=== PATIENT | female | born 1980 | race Caucasian/White ===

== ENCOUNTER 2016-08-21 01:22 | Outpatient (CLI) | payer BC ==
[~2016-08-21] VITALS: Ht 170.2 cm; Wt 80.0 kg
[~2016-08-21 01:22] MED LIST: HYDR200T PO
[2016-08-21 02:04] LABS: AMNI LOT 554010215
[2016-08-21 02:13] VITALS: BP 123/75
[2016-08-21 02:54] LABS: AMNI OBC PASS; AMNISURE NEGATIVE (NEGATIVE)
== END 2016-08-21 03:05 | disposition home or self-care (01) ==
LOC: LDOP 01:22
PROVIDERS: ATTEND Obstetrics & Gynecology
DX: O09.513 Supervision of elderly primigravida, third trimester (principal); O36.8130 Decreased fetal movements, third trimester, not applicable or unspecified; Z3A.28 28 weeks gestation of pregnancy
CPT/HCPCS: 59025; 81003; 84112; 87086; 99201; G0463

== ENCOUNTER 2016-11-16 05:36 | Inpatient (IN) | payer BC ==
[~2016-11-16] VITALS: Ht 170.2 cm; Wt 102.2 kg
[2016-11-16] MEDS ORDERED: OXYTOCIN 30U/ 0.9% NaCL 500ML 500 ML IV SCH (05:47)
[2016-11-16] MEDS ORDERED: LACTATED RINGERS 1,000 ML IV SCH ×2 (05:47→06:00)
[2016-11-16] MEDS ORDERED: PREN-3 PO (05:58)
[2016-11-16] MEDS ORDERED: SODIUM CITRATE/CITRIC ACID 30 ML UDC PO ONE (06:00)
[2016-11-16] MEDS ORDERED: LACTATED RINGERS 1,000 ML IVBOLUS ONE (06:00)
[2016-11-16] MEDS ORDERED: ONDANSETRON 2MG/ML, 2ML IVPush ONE (06:00)
[2016-11-16 06:06] VITALS: BP 125/85
[2016-11-16] MEDS ORDERED: OXYTOCIN 30U/ 0.9% NaCL 500ML 500 ML ONE (06:43)
[2016-11-16] MEDS ORDERED: NEWBORN KIT ONE (06:43)
[2016-11-16] MEDS ORDERED: METOCLOPRAMIDE 5 MG/ML, 2ML ONE ×2 (06:43→08:11)
[2016-11-16] MEDS ORDERED: SODIUM CITRATE/CITRIC ACID 30 ML UDC ONE ×2 (06:43→08:11)
[2016-11-16] MEDS ORDERED: PROMETHAZINE 25 MG/ML, 1ML IV PRN (07:30)
[2016-11-16] MEDS ORDERED: EPHEDRINE 50 MG/ML, 1ML IVPush PRN (07:30)
[2016-11-16] MEDS ORDERED: hydrALAzine 20 MG/ML, 1ML IV PRN (07:30)
[2016-11-16] MEDS ORDERED: ONDANSETRON 2MG/ML, 2ML IVPush PRN (07:30)
[2016-11-16] MEDS ORDERED: HYDROmorphone 1 MG/ML, 1ML IV PRN (07:30)
[2016-11-16] MEDS ORDERED: LABETALOL 5MG/ML, 20ML IV PRN (07:30)
[2016-11-16] MEDS ORDERED: ALBUTEROL SULFATE 2.5 MG/3 ML NPPB PRN (07:30)
[2016-11-16] MEDS ORDERED: MIDAZOLAM 1 MG/ML, 2ML IV PRN (07:30)
[2016-11-16] MEDS ORDERED: MEPERIDINE/PF 25MG/0.5ML IVPush PRN (07:30)
[2016-11-16] MEDS ORDERED: FENTANYL PF 100 MCG/2ML IV PRN (07:30)
[2016-11-16] MEDS ORDERED: OXYcodone 5 MG/5 ML ORAL.SOL UDC PO PRN (07:30)
[2016-11-16] MEDS ORDERED: HYDROcodone/APAP 7.5-325MG/15ML UDC PO PRN (07:30)
[2016-11-16] MEDS ORDERED: FENTANYL PF 100 MCG/2ML ONE (07:37)
[2016-11-16] MEDS ORDERED: DEXAMETHASONE 4 MG/ML, 1ML ONE (08:11)
[2016-11-16] MEDS ORDERED: KETOROLAC 30 MG/1 ML ONE (08:11)
[2016-11-16] MEDS ORDERED: ONDANSETRON 2MG/ML, 2ML ONE (08:11)
[2016-11-16] MEDS ORDERED: CEFAZOLIN 1,000 MG ONE (08:11)
[2016-11-16] MEDS ORDERED: OXYTOCIN 10 UNITS/ML, 1ML ONE (08:11)
[2016-11-16] MEDS ORDERED: METOCLOPRAMIDE 5 MG/ML, 2ML IVPush ONE (08:30)
[2016-11-16] MEDS: LACTATED RINGERS 1,000 ML IV SCH ×4 (09:19→19:19)
[2016-11-16] MEDS ORDERED: ACETAMINOPHEN 325 MG TABLET PO PRN (09:30)
[2016-11-16] MEDS ORDERED: morphine SULFATE 10 MG/ML, 1ML IVPush PRN ×2 (09:30)
[2016-11-16] MEDS ORDERED: OXYcodone/APAP 5/325MG TABLET PO PRN (09:30)
[2016-11-16] MEDS ORDERED: ONDANSETRON 2MG/ML, 2ML IV PRN (09:30)
[2016-11-16] MEDS ORDERED: METHYLERGONOVINE 0.2 MG/ML IM PRN (09:30)
[2016-11-16] MEDS: KETOROLAC 30 MG/1 ML IV SCH ×3 (09:30→22:02)
[2016-11-16] MEDS ORDERED: MEPERIDINE/PF 100 MG/ML IVPush PRN (09:30)
[2016-11-16] MEDS ORDERED: MISOPROSTOL 200 MCG TABLET PR PRN (09:30)
[2016-11-16] MEDS ORDERED: MEPERIDINE/PF 50 MG/ML IVPush PRN (09:30)
[2016-11-16] MEDS: OXYTOCIN 30U/ 0.9% NaCL 500ML 500 ML IV SCH ×2 (10:02→19:19)
[2016-11-16 12:00] VITALS: BP 121/78
[2016-11-16 16:00] VITALS: BP 129/77
[2016-11-16 19:25] VITALS: BP 114/69
[2016-11-17 00:50] VITALS: BP 115/73
[2016-11-17] MEDS: LACTATED RINGERS 1,000 ML IV SCH ×5 (01:19→17:19)
[2016-11-17 04:15] VITALS: BP 117/75
[2016-11-17] MEDS: KETOROLAC 30 MG/1 ML IV SCH ×4 (04:15→22:42)
[2016-11-17] MEDS: OXYcodone/APAP 5/325MG TABLET PO PRN ×4 (04:15→18:06)
[2016-11-17] MEDS: OXYTOCIN 30U/ 0.9% NaCL 500ML 500 ML IV SCH ×2 (05:19→15:19)
[2016-11-17 08:45] VITALS: BP 117/75
[2016-11-17] MEDS: DOCUSATE 100 MG CAPSULE PO PRN ×2 (09:02→22:42)
[2016-11-17] MEDS: PRENATAL VIT/IRON/FA 1 EACH TABLET PO SCH (09:02)
[2016-11-17 19:25] VITALS: BP 116/74
[2016-11-18] MEDS: OXYTOCIN 30U/ 0.9% NaCL 500ML 500 ML IV SCH ×3 (01:19→21:19)
[2016-11-18] MEDS: LACTATED RINGERS 1,000 ML IV SCH ×6 (01:19→21:19)
[2016-11-18] MEDS: KETOROLAC 30 MG/1 ML IV SCH ×2 (03:30→04:29)
[2016-11-18] MEDS: KETOROLAC 30 MG/1 ML IVPush SCH ×3 (04:30→17:00)
[2016-11-18 08:00] VITALS: BP 115/75
[2016-11-18] MEDS: PRENATAL VIT/IRON/FA 1 EACH TABLET PO SCH (11:06)
[2016-11-18] MEDS: IBUPROFEN 200 MG TABLET PO PRN ×3 (11:06→23:35)
[2016-11-18] MEDS: DOCUSATE 100 MG CAPSULE PO PRN (11:06)
[2016-11-18] MEDS: OXYcodone/APAP 5/325MG TABLET PO PRN ×3 (14:14→23:35)
[2016-11-18 21:00] VITALS: BP 113/76
[2016-11-19 06:50] VITALS: BP 118/80
[2016-11-19] MEDS: PRENATAL VIT/IRON/FA 1 EACH TABLET PO SCH (07:58)
[2016-11-19] MEDS: DOCUSATE 100 MG CAPSULE PO PRN (07:58)
[2016-11-19] MEDS: IBUPROFEN 200 MG TABLET PO PRN ×2 (07:58→14:06)
[2016-11-19] MEDS: OXYcodone/APAP 5/325MG TABLET PO PRN ×2 (07:58→12:47)
[2016-11-19] MEDS ORDERED: OXYC-302 PO (11:28)
[2016-11-19] MEDS ORDERED: IBUP-1222 PO (11:29)
== END 2016-11-19 15:57 | disposition home or self-care (01) | DRG 766 ==
LOC: LDIP 05:36 → 2NW 11:19
PROVIDERS: ADMIT Obstetrics & Gynecology; ATTEND Obstetrics & Gynecology
PROC: 10D00Z1 Extraction of Products of Conception, Low, Open Approach (ICD-10-PCS; principal; 2016-11-16)
DX: O34.211 Maternal care for low transverse scar from previous cesarean delivery (principal); O99.824 Streptococcus B carrier state complicating childbirth; M32.9 Systemic lupus erythematosus, unspecified; O99.89 Other specified diseases and conditions complicating pregnancy, childbirth and the puerperium; O69.81X0 Labor and delivery complicated by cord around neck, without compression, not applicable or unspecified; Z3A.39 39 weeks gestation of pregnancy; Z37.0 Single live birth
CPT/HCPCS: 36415; 85025; 86850; 86900; J0690; J1100; J1885; J2405; J3010; J2590; J2765; J7120

== ENCOUNTER 2016-12-02 18:44 | Emergency (ER) | payer BC ==
[~2016-12-02] VITALS: Ht 170.2 cm; Wt 92.9 kg
[~2016-12-02 18:44] MED LIST changes: +IBUP-1222 PO; +OXYC-302 PO; +PREN-3 PO
[2016-12-02] MEDS ORDERED: ACETAMINOPHEN 500 MG TABLET ONE (19:23)
[2016-12-02] MEDS ORDERED: SODIUM CHLORIDE 0.9% 1,000ML IVBOLUS ONE (19:30)
[2016-12-02] MEDS ORDERED: SODIUM CHLORIDE FLUSH 10ML SYR IVF ONE (19:30)
[2016-12-02] MEDS ORDERED: ACETAMINOPHEN 500 MG TABLET PO ONE (19:30)
[2016-12-02 19:43] LABS: BLOOD UREA NITROGEN 10 mg/dL (7-18)
[2016-12-02] MEDS ORDERED: FAMOTIDINE 20 MG/2 ML IVP ONE (20:00)
[2016-12-02] MEDS ORDERED: MAALOX/HYOSCYAMINE/LIDOCAINE 45 ML BOTTLE PO ONE (20:00)
[2016-12-02] MEDS ORDERED: MAALOX/HYOSCYAMINE/LIDOCAINE 45 ML BOTTLE ONE (22:12)
[2016-12-02] MEDS ORDERED: FAMOTIDINE 20 MG/2 ML ONE (22:12)
[2016-12-02] MEDS ORDERED: MORPHINE SULFATE 4 MG/ML, 1ML ONE (22:14)
[2016-12-02] MEDS ORDERED: MORPHINE SULFATE 4 MG/ML, 1ML IVPush PRN (22:30)
[2016-12-02 23:31] VITALS: BP 117/72
== END 2016-12-02 23:33 | disposition home or self-care (01) ==
LOC: ED 21:48
DX: R10.33 Periumbilical pain (principal); R10.31 Right lower quadrant pain; Z87.891 Personal history of nicotine dependence
CPT/HCPCS: 36415; 71010; 72132; 74177; 80048; 81003; 82040; 83605; 84145; 85025; 85651; 87040; 96361; 96374; 96375; J7030; S0028

== ENCOUNTER 2016-12-07 15:42 | Inpatient (IN) | payer BC ==
[~2016-12-07] VITALS: Ht 170.2 cm; Wt 92.7 kg
[2016-12-07] MEDS ORDERED: SODIUM CHLORIDE 0.9% 1,000ML IVBOLUS ONE (16:30)
[2016-12-07] MEDS ORDERED: SODIUM CHLORIDE FLUSH 10ML SYR IVF ONE (16:30)
[2016-12-07 16:40] LABS: BLOOD UREA NITROGEN 6 mg/dL (7-18)
[2016-12-07 16:55] LABS: PATH.CAST-FLAG NOT PRESENT; SPERM-FLAG NOT PRESENT; SRC-FLAG NOT PRESENT; XTAL-FLAG NOT PRESENT; YLC-FLAG NOT PRESENT
[2016-12-07] MEDS ORDERED: ACETAMINOPHEN 500 MG TABLET PO ONE (17:00)
[2016-12-07] MEDS ORDERED: ACETAMINOPHEN 500 MG TABLET ONE (17:19)
[2016-12-07] MEDS ORDERED: CEFTRIAXONE PMX 1GM/50ML 50 ML IV ONE (17:30)
[2016-12-07] MEDS ORDERED: CEFTRIAXONE PMX 1GM/50ML 50 ML ONE (17:57)
[2016-12-07] MEDS ORDERED: CLINDAMYCIN PMX 900MG/50ML 50 ML ONE (19:22)
[2016-12-07] MEDS: CEFOTETAN PMX 2GM/50ML 50 ML IV ONE ×2 (19:30→21:19)
[2016-12-07] MEDS ORDERED: CLINDAMYCIN PMX 900MG/50ML 50 ML IV ONE (19:30)
[2016-12-07] MEDS ORDERED: DOCUSATE 100 MG CAPSULE PO PRN (20:00)
[2016-12-07] MEDS ORDERED: ONDANSETRON 2MG/ML, 2ML IV PRN (20:00)
[2016-12-07] MEDS ORDERED: CALCIUM CARBONATE 500 MG TAB.CHEW PO PRN (20:00)
[2016-12-07] MEDS ORDERED: OXYcodone/APAP 5/325MG TABLET PO PRN ×2 (20:00)
[2016-12-07] MEDS ORDERED: GLYCERIN ADULT SUPP PR PRN (20:00)
[2016-12-07] MEDS ORDERED: CEFOTETAN PMX 2GM/50ML 50 ML IV SCH (20:00)
[2016-12-07] MEDS ORDERED: BISACODYL 10 MG SUPP PR PRN (20:00)
[2016-12-07] MEDS ORDERED: METOCLOPRAMIDE 5 MG/ML, 2ML IV PRN (20:00)
[2016-12-07] MEDS: IBUPROFEN 600 MG TABLET PO PRN (21:19)
[2016-12-07] MEDS: LACTATED RINGERS 1,000 ML IV SCH (21:53)
[2016-12-07 22:00] VITALS: BP 112/75
[2016-12-07] MEDS: CEFOTETAN PMX 2GM/50ML 50 ML IV SCH (22:00)
[2016-12-07 22:15] VITALS: BP 112/75
[2016-12-07] MEDS: ACETAMINOPHEN 325 MG TABLET PO PRN (23:26)
[2016-12-08 02:00] VITALS: BP 115/74
[2016-12-08] MEDS: CLINDAMYCIN PMX 900MG/50ML 50 ML IV SCH ×3 (04:12→20:50)
[2016-12-08 05:28] LABS: ASPARTATE AMINO TRANSFERASE 12 U/L (15-37); BLOOD UREA NITROGEN 8 mg/dL (7-18)
[2016-12-08] MEDS: ACETAMINOPHEN 325 MG TABLET PO PRN ×2 (05:51→13:25)
[2016-12-08] MEDS: LACTATED RINGERS 1,000 ML IV SCH ×2 (06:32→14:25)
[2016-12-08 07:51] VITALS: BP 114/71
[2016-12-08] MEDS: PRENATAL VIT/IRON/FA 1 EACH TABLET PO SCH (08:31)
[2016-12-08] MEDS: IBUPROFEN 600 MG TABLET PO PRN ×3 (08:31→20:50)
[2016-12-08] MEDS: HYDROXYCHLOROQUINE 200 MG TABLET PO SCH (08:31)
[2016-12-08] MEDS: CEFOTETAN PMX 2GM/50ML 50 ML IV SCH ×2 (10:00→22:22)
[2016-12-08 14:42] VITALS: BP 123/78
[2016-12-08 19:01] VITALS: BP 120/81
[2016-12-09] MEDS: LACTATED RINGERS 1,000 ML IV SCH ×3 (00:54→20:02)
[2016-12-09 01:24] VITALS: BP 124/75
[2016-12-09] MEDS: IBUPROFEN 600 MG TABLET PO PRN ×2 (04:15→10:24)
[2016-12-09] MEDS: CLINDAMYCIN PMX 900MG/50ML 50 ML IV SCH ×3 (04:15→20:02)
[2016-12-09 04:50] VITALS: BP 101/66
[2016-12-09 08:05] VITALS: BP 108/72
[2016-12-09] MEDS: PRENATAL VIT/IRON/FA 1 EACH TABLET PO SCH (09:06)
[2016-12-09] MEDS: CEFOTETAN PMX 2GM/50ML 50 ML IV SCH ×2 (10:20→22:09)
[2016-12-09] MEDS: ACETAMINOPHEN 325 MG TABLET PO PRN ×2 (12:57→22:15)
[2016-12-09 14:30] VITALS: BP 103/66
[2016-12-09 20:46] VITALS: BP 119/79
[2016-12-10 02:05] VITALS: BP 106/71
[2016-12-10] MEDS: CLINDAMYCIN PMX 900MG/50ML 50 ML IV SCH (04:02)
[2016-12-10] MEDS: LACTATED RINGERS 1,000 ML IV SCH (06:09)
[2016-12-10 08:08] VITALS: BP 112/73
[2016-12-10] MEDS: PRENATAL VIT/IRON/FA 1 EACH TABLET PO SCH (09:05)
[2016-12-10] MEDS: HYDROXYCHLOROQUINE 200 MG TABLET PO SCH (09:05)
[2016-12-10] MEDS: CEFOTETAN PMX 2GM/50ML 50 ML IV SCH (09:08)
[2016-12-10] MEDS ORDERED: CLIN300C93 PO (10:47)
[2016-12-10] MEDS ORDERED: CEFD300C37 PO (10:48)
[2016-12-10] MEDS: IBUPROFEN 600 MG TABLET PO PRN (11:43)
== END 2016-12-10 12:10 | disposition home or self-care (01) | DRG 776 ==
LOC: ED 16:34 → EDIP 19:17 → 3NE 21:00
PROVIDERS: ADMIT Obstetrics & Gynecology; ATTEND Obstetrics & Gynecology
PROC: 0T9B70Z Drainage of Bladder with Drainage Device, Via Natural or Artificial Opening (ICD-10-PCS; principal; 2016-12-07)
DX: O86.12 Endometritis following delivery (principal); O99.89 Other specified diseases and conditions complicating pregnancy, childbirth and the puerperium; M54.32 Sciatica, left side; Z88.0 Allergy status to penicillin; Z88.2 Allergy status to sulfonamides; Z91.018 Allergy to other foods; Z87.891 Personal history of nicotine dependence
CPT/HCPCS: 36415; 80048; 80053; 81001; 82040; 83605; 85025; 87040; 87086; 87210; 87491; 87591; 87808; 96361; 96365; 96375; J0696; J7030; J7120; S0074

== ENCOUNTER 2016-12-13 21:41 | Inpatient (IN) | payer BC ==
[~2016-12-13] VITALS: Ht 172.7 cm; Wt 97.5 kg
[~2016-12-13 21:41] MED LIST changes: +CEFD300C37 PO; +CLIN300C93 PO
[2016-12-13 22:35] LABS: HEMATOCRIT 30.4 % (34.6-47.8); HEMOGLOBIN 10.1 g/dL (11.7-16.4)
[2016-12-13 22:46] LABS: ASPARTATE AMINO TRANSFERASE 20 U/L (15-37); BLOOD UREA NITROGEN 11 mg/dL (7-18)
[2016-12-13] MEDS: OXYcodone/APAP 10/325MG TABLET PO PRN (23:25)
[2016-12-13] MEDS ORDERED: OXYcodone/APAP 10/325MG TABLET ONE (23:38)
[2016-12-14] MEDS ORDERED: ENOXAPARIN 100 MG/ML SQ ONE
[2016-12-14] MEDS ORDERED: OXYC1TAB6 PO (00:13)
[2016-12-14] MEDS ORDERED: OXYC1TAB7 PO (00:15)
[2016-12-14 01:25] VITALS: BP 122/83
[2016-12-14] MEDS ORDERED: OXYcodone/APAP 5/325MG TABLET PO PRN (01:30)
[2016-12-14] MEDS ORDERED: BISACODYL 10 MG SUPP PR PRN (01:30)
[2016-12-14] MEDS ORDERED: POLYETHYLENE GLYCOL 17 GM PACKET PO PRN (01:30)
[2016-12-14] MEDS ORDERED: DOCUSATE 100 MG CAPSULE PO PRN (01:30)
[2016-12-14] MEDS: CLINDAMYCIN 300 MG CAPSULE PO SCH ×4 (01:30→18:12)
[2016-12-14] MEDS: OXYcodone/APAP 10/325MG TABLET PO PRN ×2 (01:37→01:39)
[2016-12-14] MEDS: IBUPROFEN 600 MG TABLET PO PRN ×3 (05:50→18:12)
[2016-12-14 07:11] VITALS: BP 111/69
[2016-12-14] MEDS: CEFDINIR 300 MG CAPSULE PO SCH ×2 (09:27→20:47)
[2016-12-14] MEDS: SODIUM CHLORIDE FLUSH 10ML SYR IVF SCH ×2 (09:27→20:47)
[2016-12-14] MEDS: PRENATAL VIT/IRON/FA 1 EACH TABLET PO SCH (09:27)
[2016-12-14] MEDS: WARFARIN HIGH DOSE PROTOCOL XX SCH (12:06)
[2016-12-14] MEDS: ENOXAPARIN 100 MG/ML SQ SCH (12:08)
[2016-12-14 13:37] LABS: TOTAL IRON BINDING CAPACITY 172 mcg/dL (250-450)
[2016-12-14 14:20] VITALS: BP 124/79
[2016-12-14] MEDS ORDERED: IRON DEXTRAN IV PER PHARMACY IV PRN (14:30)
[2016-12-14] MEDS: ACETAMINOPHEN 325 MG TABLET PO PRN (14:40)
[2016-12-14] MEDS ORDERED: OXYcodone/APAP 5/325MG TABLET ONE (14:57)
[2016-12-14] MEDS ORDERED: EPINEPHRINE 1 MG/ML, 1ML IM PRN (15:00)
[2016-12-14] MEDS: ONDANSETRON 2MG/ML, 2ML IVPush PRN (15:00)
[2016-12-14] MEDS ORDERED: IRON DEXTRAN COMPLEX 25 MG in SODIUM CHLORIDE 0.9% 50 ML IV ONE (15:00)
[2016-12-14] MEDS: OXYcodone/APAP 5/325MG TABLET PO PRN ×2 (15:07→21:31)
[2016-12-14] MEDS ORDERED: IRON DEXTRAN COMPLEX 1,250 MG in SODIUM CHLORIDE 0.9% 250 ML IV ONE (16:30)
[2016-12-14] MEDS ORDERED: DIPHENHYDRAMINE 50 MG/ML, 1ML IVPush ONE (17:00)
[2016-12-14] MEDS ORDERED: WARFARIN 10 MG TABLET PO-COUM ONE (18:00)
[2016-12-14 19:35] VITALS: BP 106/69
[2016-12-15] MEDS: CLINDAMYCIN 300 MG CAPSULE PO SCH ×4 (00:23→18:24)
[2016-12-15] MEDS: IBUPROFEN 600 MG TABLET PO PRN ×3 (00:23→15:35)
[2016-12-15] MEDS: ENOXAPARIN 100 MG/ML SQ SCH ×2 (00:24→12:29)
[2016-12-15 01:34] VITALS: BP 115/76
[2016-12-15] MEDS: OXYcodone/APAP 5/325MG TABLET PO PRN ×3 (03:43→22:35)
[2016-12-15 05:55] LABS: HEMATOCRIT 28.5 % (34.6-47.8); HEMOGLOBIN 9.5 g/dL (11.7-16.4); WHITE BLOOD COUNT 6.7 x10^3/uL (3.4-10)
[2016-12-15 06:11] LABS: BLOOD UREA NITROGEN 10 mg/dL (7-18)
[2016-12-15 07:46] VITALS: BP 100/64
[2016-12-15] MEDS: SODIUM CHLORIDE FLUSH 10ML SYR IVF SCH ×2 (09:00→21:28)
[2016-12-15] MEDS: HYDROXYCHLOROQUINE 200 MG TABLET PO SCH (09:38)
[2016-12-15] MEDS: PRENATAL VIT/IRON/FA 1 EACH TABLET PO SCH (09:38)
[2016-12-15] MEDS: CEFDINIR 300 MG CAPSULE PO SCH ×2 (09:38→21:28)
[2016-12-15] MEDS: WARFARIN HIGH DOSE PROTOCOL XX SCH (12:00)
[2016-12-15 13:00] VITALS: BP 114/72
[2016-12-15] MEDS: ONDANSETRON 2MG/ML, 2ML IVPush PRN (17:25)
[2016-12-15] MEDS: ACETAMINOPHEN 325 MG TABLET PO PRN (17:35)
[2016-12-15] MEDS ORDERED: WARFARIN 7.5 MG TABLET PO-COUM SCH (18:00)
[2016-12-15] MEDS ORDERED: OMNIPAQUE 350 MG/ML, 100ML BOTTLE ONE (18:06)
[2016-12-15 21:09] LABS: IS PT STATUS REG ER OR PRE ER? NO
[2016-12-16] MEDS: ENOXAPARIN 100 MG/ML SQ SCH ×3 (00:01→23:41)
[2016-12-16] MEDS: CLINDAMYCIN 300 MG CAPSULE PO SCH ×5 (00:01→23:40)
[2016-12-16 01:29] VITALS: BP 112/76
[2016-12-16] MEDS: IBUPROFEN 600 MG TABLET PO PRN ×3 (03:00→15:23)
[2016-12-16 05:11] LABS: HEMATOCRIT 28.1 % (34.6-47.8); HEMOGLOBIN 9.3 g/dL (11.7-16.4)
[2016-12-16 07:19] VITALS: BP 105/70
[2016-12-16] MEDS: PRENATAL VIT/IRON/FA 1 EACH TABLET PO SCH (09:00)
[2016-12-16] MEDS: CEFDINIR 300 MG CAPSULE PO SCH ×2 (09:11→20:09)
[2016-12-16] MEDS: SODIUM CHLORIDE FLUSH 10ML SYR IVF SCH ×2 (09:11→20:10)
[2016-12-16] MEDS: WARFARIN HIGH DOSE PROTOCOL XX SCH (12:00)
[2016-12-16 12:51] VITALS: BP 104/67
[2016-12-16 19:16] VITALS: BP 119/76
[2016-12-16] MEDS: OXYcodone/APAP 5/325MG TABLET PO PRN (23:40)
[2016-12-17 01:06] VITALS: BP 116/75
[2016-12-17] MEDS: CLINDAMYCIN 300 MG CAPSULE PO SCH ×2 (06:04→12:20)
[2016-12-17 06:55] VITALS: BP 147/90
[2016-12-17] MEDS: ONDANSETRON 2MG/ML, 2ML IVPush PRN (07:13)
[2016-12-17] MEDS: CEFDINIR 300 MG CAPSULE PO SCH (07:48)
[2016-12-17] MEDS: OXYcodone/APAP 5/325MG TABLET PO PRN ×2 (07:49→15:40)
[2016-12-17] MEDS: PRENATAL VIT/IRON/FA 1 EACH TABLET PO SCH (08:50)
[2016-12-17] MEDS: SODIUM CHLORIDE FLUSH 10ML SYR IVF SCH (10:09)
[2016-12-17] MEDS: HYDROXYCHLOROQUINE 200 MG TABLET PO SCH (10:09)
[2016-12-17] MEDS: WARFARIN HIGH DOSE PROTOCOL XX SCH (12:00)
[2016-12-17] MEDS: ENOXAPARIN 100 MG/ML SQ SCH (12:22)
[2016-12-17 12:30] VITALS: BP 107/68
[2016-12-17] MEDS ORDERED: WARF5TAB PO-COUM (14:04)
[2016-12-17 16:30] VITALS: BP 108/71
[2016-12-17] MEDS ORDERED: WARFARIN 5 MG TABLET PO-COUM SCH (18:00)
== END 2016-12-17 17:55 | disposition home health service (06) | DRG 299 ==
LOC: ED 22:05 → EDIP 12-14 00:14 → 4NOR 12-14 01:42 → DCLOUNGE 12-17 16:55
DX: I82.412 Acute embolism and thrombosis of left femoral vein (principal); E43 Unspecified severe protein-calorie malnutrition; D68.59 Other primary thrombophilia; E87.1 Hypo-osmolality and hyponatremia; D50.9 Iron deficiency anemia, unspecified; D47.3 Essential (hemorrhagic) thrombocythemia; I82.812 Embolism and thrombosis of superficial veins of left lower extremity; M32.9 Systemic lupus erythematosus, unspecified; M54.6 Pain in thoracic spine; M54.30 Sciatica, unspecified side; Z82.49 Family history of ischemic heart disease and other diseases of the circulatory system; Z83.3 Family history of diabetes mellitus; Z86.718 Personal history of other venous thrombosis and embolism; Z87.891 Personal history of nicotine dependence; Z68.32 Body mass index [BMI] 32.0-32.9, adult; Z88.0 Allergy status to penicillin; Z88.2 Allergy status to sulfonamides; Z88.8 Allergy status to other drugs, medicaments and biological substances; Z87.440 Personal history of urinary (tract) infections
CPT/HCPCS: 36415; 71275; 80048; 80053; 81003; 82607; 83540; 83550; 84484; 85025; 85610; 85730; 93970; 96372; J1650; J1750; J2405; Q9967; J1200; J7050

== ENCOUNTER 2016-12-19 19:24 | Inpatient (IN) | payer BC ==
[~2016-12-19] VITALS: Ht 170.2 cm; Wt 94.0 kg
[~2016-12-19 19:24] MED LIST changes: +CLIN300C8 PO; -CLIN300C93 PO; +OXYC1TAB6 PO; +OXYC1TAB7 PO; +WARF5TAB PO-COUM
[2016-12-19] MEDS ORDERED: ONDANSETRON 2MG/ML, 2ML ONE (20:18)
[2016-12-19] MEDS ORDERED: HYDROmorphone 1 MG/ML, 1ML ONE (20:18)
[2016-12-19] MEDS ORDERED: ACETAMINOPHEN 500 MG TABLET PO ONE (20:30)
[2016-12-19] MEDS ORDERED: ONDANSETRON 2MG/ML, 2ML IVPush ONE (20:30)
[2016-12-19] MEDS ORDERED: SODIUM CHLORIDE 0.9% 1,000ML IVBOLUS ONE (20:30)
[2016-12-19] MEDS ORDERED: HYDROmorphone 1 MG/ML, 1ML IVPush PRN (20:30)
[2016-12-19] MEDS ORDERED: SODIUM CHLORIDE FLUSH 10ML SYR IVF ONE (20:30)
[2016-12-19 20:32] LABS: HEMATOCRIT 30.4 % (34.6-47.8); HEMOGLOBIN 9.9 g/dL (11.7-16.4); WHITE BLOOD COUNT 7.8 x10^3/uL (3.4-10)
[2016-12-19] MEDS ORDERED: ACETAMINOPHEN 500 MG TABLET ONE (20:41)
[2016-12-19 20:43] LABS: ASPARTATE AMINO TRANSFERASE 49 U/L (15-37); BLOOD UREA NITROGEN 6 mg/dL (7-18)
[2016-12-19] MEDS ORDERED: OMNIPAQUE 350 MG/ML, 100ML BOTTLE ONE (21:01)
[2016-12-19] MEDS ORDERED: CEFTRIAXONE PMX 1GM/50ML 50 ML IV ONE (21:30)
[2016-12-19] MEDS ORDERED: CEFTRIAXONE PMX 1GM/50ML 50 ML ONE (21:45)
[2016-12-19 22:37] VITALS: BP 113/72
[2016-12-19] MEDS ORDERED: HEPARIN 25,000 UNITS/500ML PMX 500 ML IV PRN (23:00)
[2016-12-19] MEDS ORDERED: HEPARIN 5,000 UNITS/ML, 1ML IV PRN (23:00)
[2016-12-19] MEDS ORDERED: BISACODYL 10 MG SUPP PR PRN (23:00)
[2016-12-19] MEDS ORDERED: HEPARIN 5,000 UNITS/ML, 1ML IV ONE (23:00)
[2016-12-19] MEDS ORDERED: POLYETHYLENE GLYCOL 17 GM PACKET PO PRN (23:00)
[2016-12-19] MEDS: VANCOMYCIN 50 MG/ML ORAL SUSP PO SCH (23:43)
[2016-12-19] MEDS: SODIUM CHLORIDE 0.9% 1,000 ML IV SCH (23:44)
[2016-12-19] MEDS: CEFTAROLINE 600 MG in SODIUM CHLORIDE 0.9% 100 ML IV SCH (23:46)
[2016-12-20] MEDS: HYDROmorphone 2 MG/ML, 1ML IVPush PRN ×4 (02:42→13:30)
[2016-12-20 03:53] VITALS: BP 122/79
[2016-12-20] MEDS: VANCOMYCIN 50 MG/ML ORAL SUSP PO SCH ×3 (05:11→18:07)
[2016-12-20 05:36] LABS: HEMATOCRIT 28.3 % (34.6-47.8); HEMOGLOBIN 9.2 g/dL (11.7-16.4); WHITE BLOOD COUNT 6.6 x10^3/uL (3.4-10)
[2016-12-20 05:47] LABS: BLOOD UREA NITROGEN 5 mg/dL (7-18)
[2016-12-20 05:58] LABS: ASPARTATE AMINO TRANSFERASE 36 U/L (15-37)
[2016-12-20 07:25] VITALS: BP 136/83
[2016-12-20] MEDS: SENNA/DOCUSATE TABLET PO SCH (08:04)
[2016-12-20] MEDS: HYDROXYCHLOROQUINE 200 MG TABLET PO SCH (08:04)
[2016-12-20] MEDS: PRENATAL VIT/IRON/FA 1 EACH TABLET PO SCH (08:04)
[2016-12-20] MEDS: CEFTAROLINE 600 MG in SODIUM CHLORIDE 0.9% 100 ML IV SCH ×2 (10:47→22:17)
[2016-12-20] MEDS: SODIUM CHLORIDE 0.9% 1,000 ML IV SCH (10:48)
[2016-12-20 13:59] VITALS: BP 143/95
[2016-12-20] MEDS ORDERED: METRONIDAZOLE PMX 500MG/100ML 100 ML IV SCH (16:30)
[2016-12-20] MEDS: ACETAMINOPHEN 325 MG TABLET PO PRN (18:15)
[2016-12-20 19:35] VITALS: BP 125/80
[2016-12-20] MEDS: ONDANSETRON 2MG/ML, 2ML IVPush PRN (22:18)
[2016-12-21] MEDS: HYDROmorphone 2 MG/ML, 1ML IVPush PRN ×8 (00:36→22:37)
[2016-12-21] MEDS: ACETAMINOPHEN 325 MG TABLET PO PRN ×3 (00:37→22:28)
[2016-12-21] MEDS: SODIUM CHLORIDE 0.9% 1,000 ML IV SCH (00:38)
[2016-12-21 01:23] VITALS: BP 118/78
[2016-12-21 05:34] LABS: HEMATOCRIT 27.6 % (34.6-47.8); WHITE BLOOD COUNT 5.5 x10^3/uL (3.4-10)
[2016-12-21 05:48] LABS: BLOOD UREA NITROGEN 5 mg/dL (7-18)
[2016-12-21 05:53] LABS: ASPARTATE AMINO TRANSFERASE 20 U/L (15-37)
[2016-12-21 07:47] VITALS: BP 114/76
[2016-12-21] MEDS: PRENATAL VIT/IRON/FA 1 EACH TABLET PO SCH (07:50)
[2016-12-21] MEDS: SENNA/DOCUSATE TABLET PO SCH (07:51)
[2016-12-21] MEDS ORDERED: FENTANYL PF 100 MCG/2ML ONE ×2 (09:09→10:36)
[2016-12-21] MEDS ORDERED: FLUMAZENIL 0.1 MG/1 ML, 5ML ONE (09:09)
[2016-12-21] MEDS ORDERED: MIDAZOLAM 1 MG/ML, 5ML ONE ×2 (09:09→10:36)
[2016-12-21] MEDS ORDERED: NALOXONE 1 MG/ML, 2ML ONE (09:09)
[2016-12-21] MEDS ORDERED: PROTAMINE SULFATE 10 MG/ML, 5ML ONE (09:10)
[2016-12-21] MEDS ORDERED: HEPARIN 1,000 UNITS/ML, 10ML ONE (09:10)
[2016-12-21] MEDS ORDERED: HEPARIN 25,000 UNITS/500ML PMX 500 ML ONE (09:38)
[2016-12-21] MEDS ORDERED: ALTEPLASE 10 MG in SODIUM CHLORIDE 0.9% 90 ML IV SCH (10:00)
[2016-12-21] MEDS: CEFTAROLINE 600 MG in SODIUM CHLORIDE 0.9% 100 ML IV SCH ×2 (10:30→22:31)
[2016-12-21] MEDS ORDERED: MEPERIDINE/PF 50 MG/ML ONE (11:04)
[2016-12-21] MEDS ORDERED: VISIPAQUE 320MG/ML, 50ML BOTTLE ONE (11:29)
[2016-12-21] MEDS ORDERED: LABETALOL 5MG/ML, 20ML ONE (12:13)
[2016-12-21] MEDS ORDERED: ACETAMINOPHEN 325 MG TABLET PO PRN (12:30)
[2016-12-21] MEDS ORDERED: LABETALOL 5MG/ML, 20ML IVPush PRN (12:30)
[2016-12-21] MEDS ORDERED: MORPHINE SULFATE 4 MG/ML, 1ML IV PRN (13:00)
[2016-12-21] MEDS ORDERED: DIAZEPAM 5 MG/ML, 2ML IVPush PRN (13:00)
[2016-12-21] MEDS ORDERED: HEPARIN 25,000 UNITS/500ML PMX 500 ML IV PRN ×2 (13:00)
[2016-12-21] MEDS: SODIUM CHLORIDE 0.45% 1,000 ML IV SCH (15:30)
[2016-12-21] MEDS: OXYcodone IR 5MG TABLET PO PRN (17:22)
[2016-12-21] MEDS: ONDANSETRON 2MG/ML, 2ML IVPush PRN (19:39)
[2016-12-22] MEDS: SODIUM CHLORIDE 0.45% 1,000 ML IV SCH ×3 (01:15→19:00)
[2016-12-22] MEDS: ALTEPLASE 10 MG in SODIUM CHLORIDE 0.9% 90 ML IV SCH ×3 (01:38→21:33)
[2016-12-22] MEDS: HYDROmorphone 2 MG/ML, 1ML IVPush PRN ×7 (01:40→23:47)
[2016-12-22] MEDS: CEFTAROLINE 600 MG in SODIUM CHLORIDE 0.9% 100 ML IV SCH (09:57)
[2016-12-22] MEDS: PRENATAL VIT/IRON/FA 1 EACH TABLET PO SCH (10:50)
[2016-12-22] MEDS: SENNA/DOCUSATE TABLET PO SCH (10:50)
[2016-12-22] MEDS: KETOROLAC 30 MG/1 ML IVPush PRN ×3 (11:17→23:28)
[2016-12-22] MEDS ORDERED: FENTANYL PF 100 MCG/2ML ONE (15:12)
[2016-12-22] MEDS ORDERED: NALOXONE 1 MG/ML, 2ML ONE (15:12)
[2016-12-22] MEDS ORDERED: FLUMAZENIL 0.1 MG/1 ML, 5ML ONE (15:12)
[2016-12-22] MEDS ORDERED: MIDAZOLAM 1 MG/ML, 5ML ONE (15:12)
[2016-12-22] MEDS ORDERED: ONDANSETRON 2MG/ML, 2ML ONE (15:23)
[2016-12-22] MEDS ORDERED: VISIPAQUE 270 MG/ML, 50ML BOTTLE ONE (16:49)
[2016-12-22] MEDS: HYDROXYCHLOROQUINE 200 MG TABLET PO SCH (18:22)
[2016-12-22] MEDS ORDERED: CALCIUM CARBONATE 500 MG TAB.CHEW PO PRN (23:30)
[2016-12-23] MEDS: HYDROmorphone 2 MG/ML, 1ML IVPush PRN ×5 (04:31→23:06)
[2016-12-23 04:34] LABS: HEMATOCRIT 25.1 % (34.6-47.8); HEMOGLOBIN 8.2 g/dL (11.7-16.4); WHITE BLOOD COUNT 4.3 x10^3/uL (3.4-10)
[2016-12-23 04:36] LABS: ASPARTATE AMINO TRANSFERASE 13 U/L (15-37); BLOOD UREA NITROGEN 4 mg/dL (7-18)
[2016-12-23] MEDS: KETOROLAC 30 MG/1 ML IVPush PRN ×3 (05:18→20:04)
[2016-12-23] MEDS: SODIUM CHLORIDE 0.45% 1,000 ML IV SCH (05:52)
[2016-12-23] MEDS: PRENATAL VIT/IRON/FA 1 EACH TABLET PO SCH (08:29)
[2016-12-23] MEDS: SENNA/DOCUSATE TABLET PO SCH (08:29)
[2016-12-23] MEDS: ALTEPLASE 10 MG in SODIUM CHLORIDE 0.9% 90 ML IV SCH (08:30)
[2016-12-23] MEDS: ONDANSETRON 2MG/ML, 2ML IVPush PRN (13:54)
[2016-12-23] MEDS ORDERED: MIDAZOLAM 1 MG/ML, 5ML ONE (14:10)
[2016-12-23] MEDS ORDERED: NALOXONE 1 MG/ML, 2ML ONE (14:10)
[2016-12-23] MEDS ORDERED: FENTANYL PF 100 MCG/2ML ONE (14:10)
[2016-12-23] MEDS ORDERED: FLUMAZENIL 0.1 MG/1 ML, 5ML ONE (14:10)
[2016-12-23] MEDS ORDERED: VISIPAQUE 270 MG/ML, 50ML BOTTLE ONE (14:51)
[2016-12-24] MEDS: HYDROmorphone 2 MG/ML, 1ML IVPush PRN ×2 (00:41→05:44)
[2016-12-24] MEDS: SODIUM CHLORIDE 0.45% 1,000 ML IV SCH (04:06)
[2016-12-24 05:29] VITALS: BP 115/68
[2016-12-24] MEDS: SENNA/DOCUSATE TABLET PO SCH (08:00)
[2016-12-24] MEDS: HYDROXYCHLOROQUINE 200 MG TABLET PO SCH (08:00)
[2016-12-24] MEDS: PRENATAL VIT/IRON/FA 1 EACH TABLET PO SCH (08:00)
[2016-12-24 18:08] VITALS: BP 117/79
[2016-12-24 19:11] VITALS: BP 130/81
[2016-12-24] MEDS: APIXABAN 5 MG TABLET PO SCH (20:57)
[2016-12-25] MEDS: HYDROmorphone 2 MG/ML, 1ML IVPush PRN (00:12)
[2016-12-25 01:56] VITALS: BP 131/80
[2016-12-25] MEDS: KETOROLAC 30 MG/1 ML IVPush PRN ×2 (02:04→14:20)
[2016-12-25 06:35] VITALS: BP 118/80
[2016-12-25] MEDS: APIXABAN 5 MG TABLET PO SCH ×2 (09:00→20:00)
[2016-12-25] MEDS: PRENATAL VIT/IRON/FA 1 EACH TABLET PO SCH (09:00)
[2016-12-25] MEDS: SENNA/DOCUSATE TABLET PO SCH (09:00)
[2016-12-25] MEDS ORDERED: POLYETHYLENE GLYCOL 17 GM PACKET PO PRN (15:00)
[2016-12-25] MEDS ORDERED: CALCIUM CARBONATE 500 MG TAB.CHEW PO PRN (15:00)
[2016-12-25] MEDS ORDERED: ONDANSETRON 2MG/ML, 2ML IVPush PRN (15:00)
[2016-12-25] MEDS ORDERED: MORPHINE SULFATE 4 MG/ML, 1ML IV PRN (15:00)
[2016-12-25] MEDS ORDERED: BISACODYL 10 MG SUPP PR PRN (15:00)
[2016-12-25] MEDS ORDERED: ACETAMINOPHEN 325 MG TABLET PO PRN ×2 (15:00)
[2016-12-25] MEDS ORDERED: OMNIPAQUE 350 MG/ML, 100ML BOTTLE ONE (15:58)
[2016-12-25 16:52] VITALS: BP 123/82
[2016-12-25 19:36] VITALS: BP 151/86
[2016-12-25] MEDS: OXYcodone IR 5MG TABLET PO PRN (21:47)
[2016-12-26] MEDS: KETOROLAC 30 MG/1 ML IVPush PRN (01:04)
[2016-12-26 01:15] VITALS: BP 110/72
[2016-12-26 08:00] VITALS: BP 110/63
[2016-12-26] MEDS: SENNA/DOCUSATE TABLET PO SCH (08:53)
[2016-12-26] MEDS: PRENATAL VIT/IRON/FA 1 EACH TABLET PO SCH (08:53)
[2016-12-26] MEDS: APIXABAN 5 MG TABLET PO SCH ×2 (08:53→20:16)
[2016-12-26] MEDS: OXYcodone IR 5MG TABLET PO PRN (12:52)
[2016-12-26 14:20] VITALS: BP 109/70
[2016-12-26] MEDS ORDERED: ONDANSETRON 2MG/ML, 2ML IVPush PRN (16:30)
[2016-12-26] MEDS ORDERED: BISACODYL 10 MG SUPP PR PRN (16:30)
[2016-12-26] MEDS ORDERED: POLYETHYLENE GLYCOL 17 GM PACKET PO PRN (16:30)
[2016-12-26] MEDS ORDERED: ACETAMINOPHEN 325 MG TABLET PO PRN ×2 (16:30)
[2016-12-26] MEDS ORDERED: CALCIUM CARBONATE 500 MG TAB.CHEW PO PRN (16:30)
[2016-12-26] MEDS ORDERED: MORPHINE SULFATE 4 MG/ML, 1ML IV PRN (16:30)
[2016-12-26 19:24] VITALS: BP 109/67
[2016-12-27 04:07] VITALS: BP 103/69
[2016-12-27] MEDS: OXYcodone IR 5MG TABLET PO PRN ×3 (05:12→23:42)
[2016-12-27 05:56] LABS: ASPARTATE AMINO TRANSFERASE 36 U/L (15-37); BLOOD UREA NITROGEN 6 mg/dL (7-18)
[2016-12-27 07:20] VITALS: BP 111/73
[2016-12-27 07:27] LABS: HEMATOCRIT 25.8 % (34.6-47.8); HEMOGLOBIN 8.4 g/dL (11.7-16.4); WHITE BLOOD COUNT 4.8 x10^3/uL (3.4-10)
[2016-12-27] MEDS: APIXABAN 5 MG TABLET PO SCH ×2 (07:51→19:40)
[2016-12-27] MEDS: HYDROXYCHLOROQUINE 200 MG TABLET PO SCH (07:51)
[2016-12-27] MEDS: PRENATAL VIT/IRON/FA 1 EACH TABLET PO SCH (07:51)
[2016-12-27] MEDS: SENNA/DOCUSATE TABLET PO SCH (07:51)
[2016-12-27 13:43] VITALS: BP 107/69
[2016-12-27] MEDS ORDERED: SODIUM CHLORIDE 0.9% 1,000 ML IV SCH (19:00)
[2016-12-27 19:48] VITALS: BP 112/68
[2016-12-27 23:11] VITALS: BP 112/68
[2016-12-28 02:13] VITALS: BP 104/68
[2016-12-28 03:49] VITALS: BP 104/68
[2016-12-28 05:33] LABS: HEMATOCRIT 26.3 % (34.6-47.8); HEMOGLOBIN 8.6 g/dL (11.7-16.4); WHITE BLOOD COUNT 3.3 x10^3/uL (3.4-10)
[2016-12-28 05:46] LABS: BLOOD UREA NITROGEN 7 mg/dL (7-18)
[2016-12-28 05:49] LABS: ASPARTATE AMINO TRANSFERASE 25 U/L (15-37)
[2016-12-28] MEDS: SENNA/DOCUSATE TABLET PO SCH (09:00)
[2016-12-28] MEDS: APIXABAN 5 MG TABLET PO SCH ×2 (09:03→21:06)
[2016-12-28] MEDS: PRENATAL VIT/IRON/FA 1 EACH TABLET PO SCH (09:03)
[2016-12-28 09:12] VITALS: BP 100/65
[2016-12-28] MEDS ORDERED: OMNIPAQUE 350 MG/ML, 150 ML BOTTLE ONE (09:25)
[2016-12-28 14:13] VITALS: BP 111/73
[2016-12-28 20:41] VITALS: BP 111/74
[2016-12-29 04:30] VITALS: BP 109/70
[2016-12-29 05:26] LABS: BLOOD UREA NITROGEN 9 mg/dL (7-18)
[2016-12-29 07:19] VITALS: BP 105/71
[2016-12-29] MEDS: OXYcodone IR 5MG TABLET PO PRN ×4 (07:44→20:13)
[2016-12-29] MEDS: HYDROXYCHLOROQUINE 200 MG TABLET PO SCH (07:44)
[2016-12-29] MEDS: APIXABAN 5 MG TABLET PO SCH ×2 (07:44→20:12)
[2016-12-29] MEDS: PRENATAL VIT/IRON/FA 1 EACH TABLET PO SCH (07:44)
[2016-12-29] MEDS: SENNA/DOCUSATE TABLET PO SCH (09:00)
[2016-12-29 16:23] VITALS: BP 111/74
[2016-12-29 19:00] VITALS: BP 103/73
[2016-12-30] MEDS: OXYcodone IR 5MG TABLET PO PRN ×2 (01:13→14:10)
[2016-12-30 01:15] VITALS: BP 108/73
[2016-12-30 07:31] VITALS: BP 105/68
[2016-12-30] MEDS: APIXABAN 5 MG TABLET PO SCH (07:39)
[2016-12-30] MEDS: PRENATAL VIT/IRON/FA 1 EACH TABLET PO SCH (07:39)
[2016-12-30] MEDS: SENNA/DOCUSATE TABLET PO SCH (07:39)
[2016-12-30] MEDS ORDERED: MIDAZOLAM 1 MG/ML, 5ML ONE (08:50)
[2016-12-30] MEDS ORDERED: FENTANYL PF 100 MCG/2ML ONE (08:51)
[2016-12-30] MEDS ORDERED: LIDOCAINE 1%, 20ML ONE (08:51)
[2016-12-30] MEDS ORDERED: VISIPAQUE 320MG/ML, 50ML BOTTLE ONE (09:33)
[2016-12-30 12:26] VITALS: BP 130/99
[2016-12-30 12:48] VITALS: BP 98/67
[2016-12-30] MEDS ORDERED: HYDR-3240 PO (14:36)
[2016-12-30] MEDS ORDERED: APIX5TAB PO (14:36)
[2016-12-30 15:01] VITALS: BP 115/76
== END 2016-12-30 18:19 | disposition home or self-care (01) | DRG 853 ==
LOC: ED 21:30 → EDIP 21:45 → 3NE 22:30 → ICU 12-21 11:32 → CCU 12-24 15:08 → 5SO 12-24 17:02
PROVIDERS: ADMIT Internal Medicine; ATTEND Internal Medicine
PROC: 06H03DZ Insertion of Intraluminal Device into Inferior Vena Cava, Percutaneous Approach (ICD-10-PCS; principal; 2016-12-30)
DX: A41.9 Sepsis, unspecified organism (principal); E43 Unspecified severe protein-calorie malnutrition; E87.0 Hyperosmolality and hypernatremia; I82.412 Acute embolism and thrombosis of left femoral vein; D64.9 Anemia, unspecified; D75.89 Other specified diseases of blood and blood-forming organs; M32.9 Systemic lupus erythematosus, unspecified; R26.2 Difficulty in walking, not elsewhere classified; R65.20 Severe sepsis without septic shock; Z79.01 Long term (current) use of anticoagulants; Z82.49 Family history of ischemic heart disease and other diseases of the circulatory system; Z83.3 Family history of diabetes mellitus; Z86.718 Personal history of other venous thrombosis and embolism; Z87.891 Personal history of nicotine dependence; Z88.0 Allergy status to penicillin; Z88.2 Allergy status to sulfonamides; Z88.8 Allergy status to other drugs, medicaments and biological substances; Z68.32 Body mass index [BMI] 32.0-32.9, adult
CPT/HCPCS: 36005; 36415; 37187; 37191; 37212; 37213; 71010; 71275; 74177; 76937; 80048; 80053; 81003; 83605; 83735; 84100; 84145; 85025; 85520; 85610; 85651; 85730; 86141; 87040; 87046; 87081; 87324; 93005; 93306; 96365; 96375; 99156; 99157; C1894; J0696; J0712; J1170; J1644; J1885; J2175; J2250; J2405; J2720; J2997; J3010; J3360; J3370; J3490; Q9966; Q9967; C1751; C1757; C1769; C1880; J2310; J7030

== ENCOUNTER 2017-01-03 14:16 | Inpatient (IN) | payer BC ==
[~2017-01-03] VITALS: Ht 170.2 cm; Wt 84.4 kg
[~2017-01-03 14:16] MED LIST changes: +APIX5TAB PO; +HYDR-3240 PO
[2017-01-03] MEDS ORDERED: ONDANSETRON 2MG/ML, 2ML IVPush ONE (16:00)
[2017-01-03] MEDS ORDERED: HYDROmorphone 1 MG/ML, 1ML IVPush PRN ×2 (16:00→18:30)
[2017-01-03] MEDS ORDERED: SODIUM CHLORIDE FLUSH 10ML SYR IVF ONE (16:00)
[2017-01-03 16:09] LABS: HEMATOCRIT 29.9 % (34.6-47.8); HEMOGLOBIN 9.5 g/dL (11.7-16.4); WHITE BLOOD COUNT 4.6 x10^3/uL (3.4-10)
[2017-01-03 16:19] LABS: BLOOD UREA NITROGEN 8 mg/dL (7-18)
[2017-01-03] MEDS ORDERED: HYDROmorphone 1 MG/ML, 1ML ONE ×2 (16:38→18:19)
[2017-01-03] MEDS ORDERED: ONDANSETRON 2MG/ML, 2ML ONE (18:12)
[2017-01-03] MEDS ORDERED: KETOROLAC 30 MG/1 ML ONE (19:56)
[2017-01-03] MEDS ORDERED: KETOROLAC 30 MG/1 ML IVPush ONE (20:00)
[2017-01-03] MEDS ORDERED: ZOLPIDEM 5MG TABLET PO PRN (20:30)
[2017-01-03] MEDS ORDERED: ACETAMINOPHEN 325 MG TABLET PO PRN (20:30)
[2017-01-03] MEDS ORDERED: POLYETHYLENE GLYCOL 17 GM PACKET PO PRN (20:30)
[2017-01-03] MEDS ORDERED: BISACODYL 10 MG SUPP PR PRN (20:30)
[2017-01-03] MEDS ORDERED: PROMETHAZINE 25 MG/ML, 1ML IM PRN (20:30)
[2017-01-03] MEDS ORDERED: DOCUSATE 100 MG CAPSULE PO PRN (20:30)
[2017-01-03] MEDS ORDERED: HEPARIN 25,000 UNITS/500ML PMX 500 ML ONE (21:05)
[2017-01-03] MEDS: HEPARIN 25,000 UNITS/500ML PMX 500 ML IV PRN (21:29)
[2017-01-03 22:44] VITALS: BP 119/75
[2017-01-04 00:19] LABS: IS PT STATUS REG ER OR PRE ER? NO
[2017-01-04] MEDS: CALCIUM CARBONATE 500 MG TAB.CHEW PO SCH ×5 (00:53→22:24)
[2017-01-04 02:50] VITALS: BP 101/66
[2017-01-04] MEDS: KETOROLAC 30 MG/1 ML IVPush PRN ×2 (05:01→17:05)
[2017-01-04 05:21] LABS: HEMATOCRIT 28.4 % (34.6-47.8); HEMOGLOBIN 9.3 g/dL (11.7-16.4); WHITE BLOOD COUNT 4.2 x10^3/uL (3.4-10)
[2017-01-04 05:37] LABS: ASPARTATE AMINO TRANSFERASE 14 U/L (15-37); BLOOD UREA NITROGEN 11 mg/dL (7-18)
[2017-01-04 07:33] VITALS: BP 103/64
[2017-01-04 13:52] VITALS: BP 97/67
[2017-01-04 19:28] VITALS: BP 101/62
[2017-01-04 20:13] LABS: CARCINOEMBRYONIC ANTIGEN 0.22 ng/mL (0.0-3.00)
[2017-01-04] MEDS: DIAZEPAM 5 MG/ML, 10ML VIAL IV PRN (22:24)
[2017-01-05 02:00] VITALS: BP 111/71
[2017-01-05] MEDS: CALCIUM CARBONATE 500 MG TAB.CHEW PO SCH ×4 (06:00→23:28)
[2017-01-05] MEDS: HEPARIN 5,000 UNITS/ML, 1ML IV PRN ×3 (09:30→23:47)
[2017-01-05 09:47] VITALS: BP 110/70
[2017-01-05] MEDS: KETOROLAC 30 MG/1 ML IVPush PRN (11:21)
[2017-01-05] MEDS: HYDROXYCHLOROQUINE 200 MG TABLET PO SCH (11:22)
[2017-01-05 12:38] VITALS: BP 116/74
[2017-01-05 20:26] VITALS: BP 110/73
[2017-01-05] MEDS: DIAZEPAM 5 MG/ML, 10ML VIAL IV PRN (23:28)
[2017-01-06 00:45] VITALS: BP 124/85
[2017-01-06] MEDS: CALCIUM CARBONATE 500 MG TAB.CHEW PO SCH ×3 (06:00→16:00)
[2017-01-06 06:10] LABS: HEMATOCRIT 26.3 % (34.6-47.8); HEMOGLOBIN 8.4 g/dL (11.7-16.4)
[2017-01-06 06:22] LABS: BLOOD UREA NITROGEN 10 mg/dL (7-18)
[2017-01-06 06:23] LABS: ASPARTATE AMINO TRANSFERASE 28 U/L (15-37)
[2017-01-06] MEDS: HEPARIN 5,000 UNITS/ML, 1ML IV PRN ×2 (06:26→20:26)
[2017-01-06] MEDS: HEPARIN 25,000 UNITS/500ML PMX 500 ML IV PRN ×2 (06:28→23:00)
[2017-01-06] MEDS: KETOROLAC 30 MG/1 ML IVPush PRN ×2 (06:40→18:25)
[2017-01-06 08:41] VITALS: BP 114/75
[2017-01-06 13:11] VITALS: BP 116/72
[2017-01-06 15:34] LABS: ANA SCREEN POSITIVE (Negative)
[2017-01-06 19:29] VITALS: BP 109/65
[2017-01-07] MEDS: CALCIUM CARBONATE 500 MG TAB.CHEW PO SCH ×4 (00:19→21:00)
[2017-01-07 01:17] VITALS: BP 104/67
[2017-01-07] MEDS: HYDROmorphone 2 MG/ML, 1ML IVPush PRN ×3 (04:26→21:59)
[2017-01-07 07:23] VITALS: BP 106/72
[2017-01-07] MEDS: HYDROXYCHLOROQUINE 200 MG TABLET PO SCH (09:00)
[2017-01-07] MEDS: HEPARIN 5,000 UNITS/ML, 1ML IV PRN (09:11)
[2017-01-07] MEDS ORDERED: MIDAZOLAM 1 MG/ML, 5ML ONE ×2 (13:59→15:05)
[2017-01-07] MEDS ORDERED: NALOXONE 1 MG/ML, 2ML ONE (14:00)
[2017-01-07] MEDS ORDERED: FENTANYL PF 100 MCG/2ML ONE ×3 (14:00→16:12)
[2017-01-07] MEDS ORDERED: HEPARIN 1,000 UNITS/ML, 10ML ONE (14:00)
[2017-01-07] MEDS ORDERED: LIDOCAINE 2%, 20ML ONE ×2 (14:19→16:01)
[2017-01-07 15:06] LABS: BETA-2 GLYCOPROTEIN I IGA 32 (0-25)
[2017-01-07] MEDS ORDERED: ALTEPLASE 10 MG in SODIUM CHLORIDE 0.9% 90 ML IV ONE (15:30)
[2017-01-07] MEDS ORDERED: SODIUM CHLORIDE 0.9% IV ONE (15:35)
[2017-01-07] MEDS ORDERED: ALTEPLASE IV ONE (15:35)
[2017-01-07] MEDS ORDERED: VISIPAQUE 270 MG/ML, 50ML BOTTLE ONE (18:06)
[2017-01-07] MEDS: SODIUM CHLORIDE 0.9% 1,000 ML IV SCH (18:37)
[2017-01-07 19:56] LABS: HEMATOCRIT 25.2 % (34.6-47.8); HEMOGLOBIN 8.1 g/dL (11.7-16.4); WHITE BLOOD COUNT 4.3 x10^3/uL (3.4-10)
[2017-01-07] MEDS: ONDANSETRON 2MG/ML, 2ML IVPush PRN (20:44)
[2017-01-07] MEDS: DIAZEPAM 5 MG/ML, 10ML VIAL IV PRN ×2 (20:51→21:21)
[2017-01-07] MEDS: HEPARIN 25,000 UNITS/500ML PMX 500 ML IV PRN (20:56)
[2017-01-07] MEDS ORDERED: PHARMACOKINETIC MONITORING MC PRN (21:30)
[2017-01-07] MEDS ORDERED: VANCOMYCIN PER PHARMACY MC PRN (21:30)
[2017-01-07] MEDS ORDERED: PHARMACOKINETIC CONSULTATION MC ONE (21:30)
[2017-01-07] MEDS: CEFTRIAXONE PMX 1GM/50ML 50 ML IV SCH (21:33)
[2017-01-07] MEDS ORDERED: ACETAMINOPHEN 650 MG SUPP ONE (21:55)
[2017-01-07] MEDS: ACETAMINOPHEN 650 MG SUPP PR PRN (22:00)
[2017-01-07] MEDS: VANCOMYCIN 1,500 MG in SODIUM CHLORIDE 0.9% 250 ML IV SCH (22:33)
[2017-01-08 01:23] LABS: HEMATOCRIT 24.3 % (34.6-47.8); HEMOGLOBIN 7.7 g/dL (11.7-16.4); WHITE BLOOD COUNT 6.4 x10^3/uL (3.4-10)
[2017-01-08] MEDS: HYDROmorphone 2 MG/ML, 1ML IVPush PRN ×2 (02:44→06:34)
[2017-01-08] MEDS ORDERED: SODIUM CHLORIDE 0.9% IV ONE (03:00)
[2017-01-08] MEDS ORDERED: ALTEPLASE IV ONE (03:00)
[2017-01-08] MEDS: ACETAMINOPHEN 650 MG SUPP PR PRN (04:44)
[2017-01-08] MEDS: DIAZEPAM 5 MG/ML, 10ML VIAL IV PRN (05:37)
[2017-01-08] MEDS: CALCIUM CARBONATE 500 MG TAB.CHEW PO SCH ×3 (06:00→16:00)
[2017-01-08] MEDS: SODIUM CHLORIDE 0.9% 1,000 ML IV SCH (06:30)
[2017-01-08] MEDS: ONDANSETRON 2MG/ML, 2ML IVPush PRN (07:17)
[2017-01-08 07:21] LABS: BLOOD UREA NITROGEN 10 mg/dL (7-18); HEMOGLOBIN 7.3 g/dL (11.7-16.4); WHITE BLOOD COUNT 5.4 x10^3/uL (3.4-10)
[2017-01-08 07:52] LABS: HEMATOCRIT 22.8 % (34.6-47.8)
[2017-01-08] MEDS: VANCOMYCIN 1,500 MG in SODIUM CHLORIDE 0.9% 250 ML IV SCH ×2 (10:13→22:13)
[2017-01-08] MEDS ORDERED: MIDAZOLAM 1 MG/ML, 5ML ONE (11:16)
[2017-01-08] MEDS ORDERED: FLUMAZENIL 0.1 MG/1 ML, 5ML ONE (11:16)
[2017-01-08] MEDS ORDERED: FENTANYL PF 100 MCG/2ML ONE (11:16)
[2017-01-08] MEDS ORDERED: NALOXONE 1 MG/ML, 2ML ONE (11:17)
[2017-01-08] MEDS ORDERED: HEPARIN 5,000 UNITS/ML, 1ML ONE (11:17)
[2017-01-08] MEDS ORDERED: LIDOCAINE 2%, 20ML ONE (11:49)
[2017-01-08] MEDS ORDERED: HEPARIN 5,000 UNITS/ML, 1ML IV ONE ×2 (13:00→15:00)
[2017-01-08] MEDS ORDERED: HEPARIN 25,000 UNITS/500ML PMX 500 ML IV PRN (13:00)
[2017-01-08] MEDS ORDERED: HEPARIN PROTOCOL IIB/IIIA POST-LYTIC MC PRN (13:00)
[2017-01-08] MEDS ORDERED: VISIPAQUE 270 MG/ML, 50ML BOTTLE ONE (13:41)
[2017-01-08] MEDS: KETOROLAC 30 MG/1 ML IVPush PRN (14:44)
[2017-01-08] MEDS: HYDROXYCHLOROQUINE 200 MG TABLET PO SCH (14:44)
[2017-01-08] MEDS ORDERED: HEPARIN 5,000 UNITS/ML, 1ML IV PRN (15:00)
[2017-01-08] MEDS: HEPARIN 25,000 UNITS/500ML PMX 500 ML IV PRN (18:57)
[2017-01-08] MEDS ORDERED: CALCIUM CARBONATE 500 MG TAB.CHEW PO PRN (19:00)
[2017-01-08 20:28] VITALS: BP 95/53
[2017-01-08] MEDS: CEFTRIAXONE PMX 1GM/50ML 50 ML IV SCH (21:06)
[2017-01-08] MEDS: OXYcodone IR 5MG TABLET PO PRN (23:38)
[2017-01-09] VITALS (9 sets, daily range): BP systolic 106–127; BP diastolic 67–85
[2017-01-09 03:18] LABS: ASPARTATE AMINO TRANSFERASE 14 U/L (15-37); BLOOD UREA NITROGEN 7 mg/dL (7-18)
[2017-01-09 03:19] LABS: WHITE BLOOD COUNT 3.4 x10^3/uL (3.4-10)
[2017-01-09 03:21] LABS: HEMATOCRIT 21.4 % (34.6-47.8); HEMOGLOBIN 6.8 g/dL (11.7-16.4)
[2017-01-09] MEDS: OXYcodone IR 5MG TABLET PO PRN (05:15)
[2017-01-09] MEDS ORDERED: POTASSIUM CHLORIDE 20 MEQ TAB.ER.PRT PO ONE (07:30)
[2017-01-09] MEDS: VANCOMYCIN 1,500 MG in SODIUM CHLORIDE 0.9% 250 ML IV SCH ×2 (10:02→22:23)
[2017-01-09] MEDS: HEPARIN 25,000 UNITS/500ML PMX 500 ML IV PRN ×2 (10:08→22:24)
[2017-01-09] MEDS ORDERED: PHARMACOKINETIC MONITORING MC PRN (16:30)
[2017-01-09] MEDS ORDERED: ZOLPIDEM 5MG TABLET PO PRN (16:30)
[2017-01-09] MEDS ORDERED: VANCOMYCIN PER PHARMACY MC PRN (16:30)
[2017-01-09] MEDS ORDERED: POLYETHYLENE GLYCOL 17 GM PACKET PO PRN (16:30)
[2017-01-09] MEDS ORDERED: ACETAMINOPHEN 650 MG SUPP PR PRN (16:30)
[2017-01-09] MEDS ORDERED: PROMETHAZINE 25 MG/ML, 1ML IM PRN (16:30)
[2017-01-09] MEDS ORDERED: DOCUSATE 100 MG CAPSULE PO PRN (16:30)
[2017-01-09] MEDS ORDERED: SODIUM CHLORIDE 0.9% 1,000 ML IV SCH ×2 (16:30→17:47)
[2017-01-09] MEDS ORDERED: BISACODYL 10 MG SUPP PR PRN (16:30)
[2017-01-09] MEDS: HYDROmorphone 2 MG/ML, 1ML IVPush PRN (20:01)
[2017-01-09] MEDS: CEFTRIAXONE PMX 1GM/50ML 50 ML IV SCH (21:51)
[2017-01-10] MEDS: HYDROmorphone 2 MG/ML, 1ML IVPush PRN (00:41)
[2017-01-10 01:07] VITALS: BP 116/68
[2017-01-10] MEDS: CALCIUM CARBONATE 500 MG TAB.CHEW PO PRN (02:02)
[2017-01-10 05:35] LABS: ASPARTATE AMINO TRANSFERASE 17 U/L (15-37); BLOOD UREA NITROGEN 5 mg/dL (7-18)
[2017-01-10 05:44] LABS: HEMOGLOBIN 7.9 g/dL (11.7-16.4); WHITE BLOOD COUNT 3.1 x10^3/uL (3.4-10)
[2017-01-10 07:49] VITALS: BP 118/72
[2017-01-10] MEDS: ENOXAPARIN 100 MG/ML SQ SCH ×2 (08:45→21:57)
[2017-01-10] MEDS: HYDROXYCHLOROQUINE 200 MG TABLET PO SCH (08:45)
[2017-01-10] MEDS: VANCOMYCIN 1,500 MG in SODIUM CHLORIDE 0.9% 250 ML IV SCH (10:26)
[2017-01-10 13:08] VITALS: BP 122/81
[2017-01-10] MEDS: OXYcodone IR 5MG TABLET PO PRN ×2 (13:45→21:57)
[2017-01-10] MEDS: ONDANSETRON 2MG/ML, 2ML IVPush PRN (13:45)
[2017-01-10 21:05] VITALS: BP 120/85
[2017-01-10] MEDS: CEFTRIAXONE PMX 1GM/50ML 50 ML IV SCH (21:58)
[2017-01-11 01:18] VITALS: BP 107/71
[2017-01-11] MEDS: VANCOMYCIN 1,500 MG in SODIUM CHLORIDE 0.9% 250 ML IV SCH ×2 (03:35→22:51)
[2017-01-11 08:00] VITALS: BP 112/70
[2017-01-11 08:07] LABS: PROTHROMBIN TIME 11.1 sec (.)
[2017-01-11] MEDS: ENOXAPARIN 100 MG/ML SQ SCH ×2 (09:43→21:04)
[2017-01-11] MEDS ORDERED: POTASSIUM CHLORIDE 20 MEQ TAB.ER.PRT PO ONE (10:00)
[2017-01-11 12:24] VITALS: BP 123/79
[2017-01-11] MEDS: OXYcodone IR 5MG TABLET PO PRN ×2 (13:40→21:23)
[2017-01-11 16:07] LABS: FACTOR II DNA ANALYSIS Negative (.)
[2017-01-11 20:00] VITALS: BP 113/68
[2017-01-11] MEDS: CEFTRIAXONE PMX 1GM/50ML 50 ML IV SCH (21:04)
[2017-01-11] MEDS: OxyconTIN ER 10 MG TAB.ER PO SCH (22:00)
[2017-01-12 02:35] VITALS: BP 108/68
[2017-01-12 06:03] LABS: BLOOD UREA NITROGEN 4 mg/dL (7-18)
[2017-01-12 06:13] LABS: HEMATOCRIT 26.3 % (34.6-47.8); HEMOGLOBIN 8.6 g/dL (11.7-16.4); WHITE BLOOD COUNT 2.5 x10^3/uL (3.4-10)
[2017-01-12 06:49] LABS: ANISOCYTOSIS 1+; POIKILOCYTOSIS 1+; POLYCHROMASIA 1+
[2017-01-12 06:50] LABS: OVALOCYTES 1+
[2017-01-12] MEDS: HYDROXYCHLOROQUINE 200 MG TABLET PO SCH (08:01)
[2017-01-12] MEDS: ENOXAPARIN 100 MG/ML SQ SCH (08:02)
[2017-01-12 08:22] VITALS: BP 118/76
[2017-01-12] MEDS: ONDANSETRON 2MG/ML, 2ML IVPush PRN (10:00)
[2017-01-12] MEDS: OxyconTIN ER 10 MG TAB.ER PO SCH ×2 (10:00→22:06)
[2017-01-12 15:05] VITALS: BP 114/74
[2017-01-12] MEDS: VANCOMYCIN 1,500 MG in SODIUM CHLORIDE 0.9% 250 ML IV SCH (16:51)
[2017-01-12 20:27] VITALS: BP 115/82
[2017-01-12] MEDS: CEFTRIAXONE PMX 1GM/50ML 50 ML IV SCH (20:40)
[2017-01-12] MEDS: ACETAMINOPHEN 325 MG TABLET PO PRN (20:40)
[2017-01-12] MEDS: ENOXAPARIN 80 MG/0.8 ML SQ SCH (20:53)
[2017-01-13 02:10] VITALS: BP 111/59
[2017-01-13 06:51] VITALS: BP 104/70
[2017-01-13] MEDS: ENOXAPARIN 80 MG/0.8 ML SQ SCH ×2 (09:25→21:15)
[2017-01-13] MEDS: OxyconTIN ER 10 MG TAB.ER PO SCH ×2 (10:39→22:00)
[2017-01-13] MEDS: VANCOMYCIN 1,500 MG in SODIUM CHLORIDE 0.9% 250 ML IV SCH (10:40)
[2017-01-13 13:08] VITALS: BP 122/76
[2017-01-13] MEDS: ONDANSETRON 2MG/ML, 2ML IVPush PRN (16:05)
[2017-01-13 19:31] VITALS: BP 119/73
[2017-01-13] MEDS: ACETAMINOPHEN 325 MG TABLET PO PRN (20:45)
[2017-01-13] MEDS: CEFTRIAXONE PMX 1GM/50ML 50 ML IV SCH (21:15)
[2017-01-14 01:15] VITALS: BP 109/69
[2017-01-14] MEDS: HYDROmorphone 2 MG/ML, 1ML IVPush PRN ×3 (04:36→14:05)
[2017-01-14] MEDS: VANCOMYCIN 1,500 MG in SODIUM CHLORIDE 0.9% 250 ML IV SCH ×2 (04:37→23:43)
[2017-01-14 07:00] VITALS: BP 102/58
[2017-01-14 07:12] LABS: HEMATOCRIT 27.2 % (34.6-47.8); WHITE BLOOD COUNT 3.7 x10^3/uL (3.4-10)
[2017-01-14] MEDS: ENOXAPARIN 80 MG/0.8 ML SQ SCH (09:03)
[2017-01-14] MEDS: HYDROXYCHLOROQUINE 200 MG TABLET PO SCH (09:03)
[2017-01-14] MEDS: OxyconTIN ER 10 MG TAB.ER PO SCH ×2 (10:00→22:00)
[2017-01-14 13:15] VITALS: BP 108/67
[2017-01-14] MEDS ORDERED: HYDROmorphone 1 MG/ML, 1ML ONE (14:14)
[2017-01-14] MEDS: ONDANSETRON 2MG/ML, 2ML IVPush PRN (17:15)
[2017-01-14] MEDS ORDERED: LIDOCAINE 2%, 20ML ONE (17:32)
[2017-01-14] MEDS ORDERED: FENTANYL PF 100 MCG/2ML ONE ×2 (17:34→19:53)
[2017-01-14] MEDS ORDERED: FLUMAZENIL 0.1 MG/1 ML, 5ML ONE (17:34)
[2017-01-14] MEDS ORDERED: MIDAZOLAM 1 MG/ML, 5ML ONE ×2 (17:34→19:18)
[2017-01-14] MEDS ORDERED: NALOXONE 1 MG/ML, 2ML ONE (17:35)
[2017-01-14] MEDS ORDERED: HEPARIN 1,000 UNITS/ML, 10ML ONE (17:35)
[2017-01-14] MEDS ORDERED: SODIUM CHLORIDE 0.9% IV ONE ×2 (19:00→21:00)
[2017-01-14] MEDS ORDERED: ALTEPLASE IV ONE ×2 (19:00→21:00)
[2017-01-14] MEDS ORDERED: DIPHENHYDRAMINE 50 MG/ML, 1ML ONE (19:19)
[2017-01-14] MEDS ORDERED: MEPERIDINE/PF 50 MG/ML ONE (20:29)
[2017-01-14] MEDS ORDERED: ALTEPLASE 10 MG in SODIUM CHLORIDE 0.9% 90 ML IV SCH (20:38)
[2017-01-14] MEDS ORDERED: HEPARIN 5,000 UNITS/ML, 1ML IV PRN (21:00)
[2017-01-14 21:19] LABS: HEMATOCRIT 25.2 % (34.6-47.8); HEMOGLOBIN 8.1 g/dL (11.7-16.4); WHITE BLOOD COUNT 3.8 x10^3/uL (3.4-10)
[2017-01-14] MEDS ORDERED: HEPARIN 25,000 UNITS/500ML PMX 500 ML IV SCH (22:00)
[2017-01-14] MEDS: SUCRALFATE 1 GM TABLET PO SCH (22:30)
[2017-01-14] MEDS: CEFTRIAXONE PMX 1GM/50ML 50 ML IV SCH (23:27)
[2017-01-14] MEDS: PANTOPRAZOLE 40 MG IV IVPush SCH (23:28)
[2017-01-14] MEDS: OXYcodone IR 5MG TABLET PO PRN (23:41)
[2017-01-15] MEDS ORDERED: ALTEPLASE 10 MG in SODIUM CHLORIDE 0.9% 90 ML IV SCH (04:00)
[2017-01-15] MEDS ORDERED: OMNIPAQUE 350 MG/ML, 100ML BOTTLE ONE (04:00)
[2017-01-15 05:58] LABS: HEMATOCRIT 23.9 % (34.6-47.8); HEMOGLOBIN 8.1 g/dL (11.7-16.4); WHITE BLOOD COUNT 2.5 x10^3/uL (3.4-10)
[2017-01-15] MEDS: HYDROmorphone 2 MG/ML, 1ML IVPush PRN ×5 (06:19→22:38)
[2017-01-15] MEDS: ONDANSETRON 2MG/ML, 2ML IVPush PRN ×2 (06:19→17:12)
[2017-01-15 06:41] LABS: DIFF TOTAL CELLS COUNTED 100 CELL DIFF
[2017-01-15 07:12] LABS: ANISOCYTOSIS 1+; OVALOCYTES 1+; POIKILOCYTOSIS 1+; POLYCHROMASIA 1+; VERIFY COUNTS? YES
[2017-01-15] MEDS: SUCRALFATE 1 GM TABLET PO SCH ×4 (07:46→22:07)
[2017-01-15] MEDS: OxyconTIN ER 10 MG TAB.ER PO SCH ×2 (10:00→22:00)
[2017-01-15] MEDS: PANTOPRAZOLE 40 MG IV IVPush SCH ×2 (10:17→22:38)
[2017-01-15 11:10] LABS: HEMATOCRIT 25.5 % (34.6-47.8); HEMOGLOBIN 8.5 g/dL (11.7-16.4); WHITE BLOOD COUNT 2.1 x10^3/uL (3.4-10)
[2017-01-15 11:40] LABS: DIFF TOTAL CELLS COUNTED 100 CELL DIFF
[2017-01-15 11:43] LABS: ANISOCYTOSIS 1+; POLYCHROMASIA 1+; VERIFY COUNTS? YES
[2017-01-15 11:44] LABS: OVALOCYTES 1+
[2017-01-15] MEDS ORDERED: LIDOCAINE 2%, 20ML ONE (11:46)
[2017-01-15] MEDS ORDERED: HEPARIN 1,000 UNITS/ML, 10ML ONE (11:55)
[2017-01-15] MEDS ORDERED: FLUMAZENIL 0.1 MG/1 ML, 5ML ONE (11:55)
[2017-01-15] MEDS ORDERED: NALOXONE 1 MG/ML, 2ML ONE (11:55)
[2017-01-15] MEDS ORDERED: MIDAZOLAM 1 MG/ML, 5ML ONE (11:55)
[2017-01-15] MEDS ORDERED: FENTANYL PF 100 MCG/2ML ONE (11:56)
[2017-01-15] MEDS: OXYcodone IR 5MG TABLET PO PRN (13:20)
[2017-01-15 17:24] LABS: WHITE BLOOD COUNT 2.3 x10^3/uL (3.4-10)
[2017-01-15] MEDS ORDERED: HEPARIN 25,000 UNITS/500ML PMX 500 ML IV PRN (18:00)
[2017-01-15 18:01] LABS: DIFF TOTAL CELLS COUNTED 100 CELL DIFF
[2017-01-15 18:44] LABS: ANISOCYTOSIS 1+; POLYCHROMASIA 1+; VERIFY COUNTS? YES
[2017-01-15 18:45] LABS: LARGE PLATELETS 1+; OVALOCYTES 1+
[2017-01-15] MEDS ORDERED: HEPARIN 25,000 UNITS/500ML PMX 500 ML IV SCH (22:00)
[2017-01-15] MEDS: CEFTRIAXONE PMX 1GM/50ML 50 ML IV SCH (22:08)
[2017-01-15 23:17] LABS: HEMATOCRIT 24.1 % (34.6-47.8); HEMOGLOBIN 7.8 g/dL (11.7-16.4); WHITE BLOOD COUNT 2.3 x10^3/uL (3.4-10)
[2017-01-15 23:45] LABS: DIFF TOTAL CELLS COUNTED 100 CELL DIFF
[2017-01-15 23:52] LABS: VERIFY COUNTS? YES
[2017-01-15 23:53] LABS: ANISOCYTOSIS 1+; OVALOCYTES 1+; POLYCHROMASIA 1+
[2017-01-16] MEDS: HYDROmorphone 2 MG/ML, 1ML IVPush PRN ×4 (00:56→14:20)
[2017-01-16 02:55] LABS: HEMATOCRIT 23.4 % (34.6-47.8); HEMOGLOBIN 7.8 g/dL (11.7-16.4); WHITE BLOOD COUNT 2.4 x10^3/uL (3.4-10)
[2017-01-16] MEDS: ALTEPLASE 10 MG in SODIUM CHLORIDE 0.9% 90 ML IV SCH ×3 (03:19→16:20)
[2017-01-16 03:42] LABS: DIFF TOTAL CELLS COUNTED 100 CELL DIFF
[2017-01-16 03:49] LABS: ANISOCYTOSIS 1+; VERIFY COUNTS? YES
[2017-01-16 03:50] LABS: OVALOCYTES 1+; POLYCHROMASIA 1+
[2017-01-16] MEDS ORDERED: ALTEPLASE 10 MG in SODIUM CHLORIDE 0.9% 90 ML IV SCH (04:00)
[2017-01-16 06:33] LABS: HEMOGLOBIN 7.6 g/dL (11.7-16.4); WHITE BLOOD COUNT 2.4 x10^3/uL (3.4-10)
[2017-01-16 06:35] LABS: ASPARTATE AMINO TRANSFERASE 20 U/L (15-37); BLOOD UREA NITROGEN 5 mg/dL (7-18)
[2017-01-16 06:40] LABS: HEMATOCRIT 22.9 % (34.6-47.8)
[2017-01-16] MEDS: ONDANSETRON 2MG/ML, 2ML IVPush PRN (06:42)
[2017-01-16 07:02] LABS: DIFF TOTAL CELLS COUNTED 100 CELL DIFF
[2017-01-16 07:53] LABS: ANISOCYTOSIS 1+; POLYCHROMASIA 1+; VERIFY COUNTS? YES
[2017-01-16 07:54] LABS: OVALOCYTES 1+
[2017-01-16] MEDS: SUCRALFATE 1 GM TABLET PO SCH ×4 (11:00→23:00)
[2017-01-16] MEDS ORDERED: LIDOCAINE 2%, 20ML ONE (11:41)
[2017-01-16] MEDS ORDERED: FENTANYL PF 100 MCG/2ML ONE (11:42)
[2017-01-16] MEDS ORDERED: NALOXONE 1 MG/ML, 2ML ONE (11:43)
[2017-01-16] MEDS ORDERED: MIDAZOLAM 1 MG/ML, 5ML ONE (11:43)
[2017-01-16] MEDS ORDERED: FLUMAZENIL 0.1 MG/1 ML, 5ML ONE (11:43)
[2017-01-16] MEDS ORDERED: HEPARIN 1,000 UNITS/ML, 10ML ONE (11:43)
[2017-01-16 12:24] LABS: HEMATOCRIT 26.2 % (34.6-47.8); HEMOGLOBIN 8.6 g/dL (11.7-16.4); WHITE BLOOD COUNT 2.4 x10^3/uL (3.4-10)
[2017-01-16 12:25] LABS: DIFF TOTAL CELLS COUNTED 100 CELL DIFF
[2017-01-16] MEDS: WARFARIN HIGH DOSE PROTOCOL XX SCH (13:30)
[2017-01-16 14:17] LABS: ANISOCYTOSIS 1+; OVALOCYTES 1+; POIKILOCYTOSIS 1+; POLYCHROMASIA 1+
[2017-01-16 14:20] LABS: VERIFY COUNTS? YES
[2017-01-16] MEDS: SODIUM CHLORIDE 0.9% 1,000 ML IV SCH (14:21)
[2017-01-16] MEDS: PANTOPRAZOLE 40 MG IV IVPush SCH ×2 (14:41→23:13)
[2017-01-16] MEDS: OxyconTIN ER 10 MG TAB.ER PO SCH (14:41)
[2017-01-16] MEDS: DOCUSATE 100 MG CAPSULE PO SCH (14:41)
[2017-01-16] MEDS ORDERED: HEPARIN 25,000 UNITS/500ML PMX 500 ML IV PRN (18:00)
[2017-01-16] MEDS ORDERED: WARFARIN 10 MG TABLET PO-COUM ONE (18:00)
[2017-01-16 18:26] LABS: HEMOGLOBIN 8.2 g/dL (11.7-16.4)
[2017-01-16 18:46] LABS: DIFF TOTAL CELLS COUNTED 100 CELL DIFF
[2017-01-16 18:48] LABS: ANISOCYTOSIS 1+; OVALOCYTES 1+; POLYCHROMASIA 1+; VERIFY COUNTS? YES
[2017-01-16] MEDS ORDERED: HEPARIN 5,000 UNITS/ML, 1ML ONE (19:30)
[2017-01-16] MEDS: HEPARIN 5,000 UNITS/ML, 1ML IV PRN (20:12)
[2017-01-16] MEDS: DIAZEPAM 5 MG/ML, 10ML VIAL IV PRN (23:18)
[2017-01-17] MEDS: SODIUM CHLORIDE 0.9% 1,000 ML IV SCH ×2 (00:24→12:01)
[2017-01-17 02:05] LABS: HEMATOCRIT 23.2 % (34.6-47.8); HEMOGLOBIN 7.7 g/dL (11.7-16.4); WHITE BLOOD COUNT 2.3 x10^3/uL (3.4-10)
[2017-01-17 02:15] LABS: ASPARTATE AMINO TRANSFERASE 31 U/L (15-37); BLOOD UREA NITROGEN 6 mg/dL (7-18)
[2017-01-17] MEDS: OxyconTIN ER 10 MG TAB.ER PO SCH ×2 (02:50→20:56)
[2017-01-17] MEDS: HEPARIN 5,000 UNITS/ML, 1ML IV PRN (03:00)
[2017-01-17] MEDS: HYDROmorphone 2 MG/ML, 1ML IVPush PRN ×3 (04:16→17:49)
[2017-01-17] MEDS ORDERED: POTASSIUM CHLORIDE 20 MEQ TAB.ER.PRT PO ONE (06:30)
[2017-01-17] MEDS: SUCRALFATE 1 GM TABLET PO SCH ×4 (08:42→20:55)
[2017-01-17] MEDS: HYDROXYCHLOROQUINE 200 MG TABLET PO SCH (08:43)
[2017-01-17] MEDS: DOCUSATE 100 MG CAPSULE PO SCH (08:43)
[2017-01-17] MEDS: ONDANSETRON 2MG/ML, 2ML IVPush PRN (08:44)
[2017-01-17] MEDS: WARFARIN HIGH DOSE PROTOCOL XX SCH (12:00)
[2017-01-17] MEDS: PANTOPRAZOLE 40 MG IV IVPush SCH ×2 (12:01→22:49)
[2017-01-17] MEDS ORDERED: HEPARIN 25,000 UNITS/500ML PMX 500 ML IV PRN (18:00)
[2017-01-17] MEDS ORDERED: WARFARIN 7.5 MG TABLET PO-COUM ONE (18:00)
[2017-01-17] MEDS: HEPARIN 25,000 UNITS/500ML PMX 500 ML IV PRN (23:37)
[2017-01-17] MEDS: DIAZEPAM 5 MG/ML, 10ML VIAL IV PRN (23:45)
[2017-01-18 04:22] LABS: HEMATOCRIT 24.5 % (34.6-47.8); HEMOGLOBIN 7.9 g/dL (11.7-16.4); WHITE BLOOD COUNT 2.8 x10^3/uL (3.4-10)
[2017-01-18 04:48] LABS: ANTI-Xa-UNFRACTIONATED HEP 0.4 IU/mL (0.30-0.70)
[2017-01-18 07:30] LABS: BLOOD UREA NITROGEN 3 mg/dL (7-18)
[2017-01-18 07:33] LABS: ASPARTATE AMINO TRANSFERASE 34 U/L (15-37)
[2017-01-18] MEDS: OxyconTIN ER 10 MG TAB.ER PO SCH (08:57)
[2017-01-18] MEDS: PANTOPRAZOLE 40 MG IV IVPush SCH ×2 (08:57→22:51)
[2017-01-18] MEDS: SUCRALFATE 1 GM TABLET PO SCH ×4 (08:57→21:19)
[2017-01-18] MEDS: DOCUSATE 100 MG CAPSULE PO SCH (08:57)
[2017-01-18] MEDS ORDERED: DIAZEPAM 5 MG/ML, 10ML VIAL IV PRN (10:30)
[2017-01-18] MEDS ORDERED: POTASSIUM CHLORIDE 20 MEQ TAB.ER.PRT PO ONE (10:30)
[2017-01-18] MEDS ORDERED: BACLOFEN 10 MG TABLET PO PRN (10:30)
[2017-01-18] MEDS: ONDANSETRON 2MG/ML, 2ML IVPush PRN ×2 (11:12→20:09)
[2017-01-18] MEDS: HEPARIN 25,000 UNITS/500ML PMX 500 ML IV PRN (17:22)
[2017-01-18] MEDS ORDERED: WARFARIN 7.5 MG TABLET PO-COUM ONE (18:00)
[2017-01-18 20:00] VITALS: BP 127/71
[2017-01-19 02:00] VITALS: BP 110/68
[2017-01-19 04:23] LABS: HEMATOCRIT 24.3 % (34.6-47.8); WHITE BLOOD COUNT 2.5 x10^3/uL (3.4-10)
[2017-01-19 04:30] LABS: ASPARTATE AMINO TRANSFERASE 53 U/L (15-37); BLOOD UREA NITROGEN 5 mg/dL (7-18)
[2017-01-19 04:32] LABS: ANTI-Xa-UNFRACTIONATED HEP 0.24 IU/mL (0.30-0.70)
[2017-01-19] MEDS: HEPARIN 5,000 UNITS/ML, 1ML IV PRN (07:00)
[2017-01-19] MEDS: SUCRALFATE 1 GM TABLET PO SCH ×4 (07:06→23:30)
[2017-01-19] MEDS: DOCUSATE 100 MG CAPSULE PO SCH (09:00)
[2017-01-19] MEDS: HEPARIN 25,000 UNITS/500ML PMX 500 ML IV PRN (09:44)
[2017-01-19] MEDS: HYDROXYCHLOROQUINE 200 MG TABLET PO SCH (11:14)
[2017-01-19] MEDS: PANTOPROZOLE 40MG TABLET PO SCH ×2 (11:15→23:30)
[2017-01-19 20:03] VITALS: BP 123/79
[2017-01-19] MEDS ORDERED: WARFARIN 2.5 MG TABLET PO-COUM SCH (22:43)
[2017-01-19] MEDS: OXYcodone IR 5MG TABLET PO PRN (23:31)
[2017-01-20] MEDS: HEPARIN 25,000 UNITS/500ML PMX 500 ML IV PRN ×2 (01:06→16:02)
[2017-01-20 01:12] VITALS: BP 109/69
[2017-01-20 06:07] LABS: HEMATOCRIT 24.5 % (34.6-47.8); HEMOGLOBIN 8.1 g/dL (11.7-16.4)
[2017-01-20 06:09] LABS: ANTI-Xa-UNFRACTIONATED HEP 0.32 IU/mL (0.30-0.70)
[2017-01-20 06:26] LABS: ASPARTATE AMINO TRANSFERASE 44 U/L (15-37); BLOOD UREA NITROGEN 4 mg/dL (7-18)
[2017-01-20 06:40] LABS: DIFF TOTAL CELLS COUNTED 100 CELL DIFF; VERIFY COUNTS? YES
[2017-01-20 06:41] LABS: ANISOCYTOSIS 1+
[2017-01-20 06:42] LABS: POLYCHROMASIA 1+
[2017-01-20] MEDS ORDERED: POTASSIUM CHLORIDE 20 MEQ TAB.ER.PRT PO ONE (07:30)
[2017-01-20 08:00] VITALS: BP 131/85
[2017-01-20] MEDS: DOCUSATE 100 MG CAPSULE PO SCH (09:00)
[2017-01-20] MEDS: PANTOPROZOLE 40MG TABLET PO SCH ×2 (09:14→22:00)
[2017-01-20] MEDS: MULTIVITAMIN 1 TABLET PO SCH (09:14)
[2017-01-20] MEDS: SUCRALFATE 1 GM TABLET PO SCH ×4 (09:14→19:56)
[2017-01-20 13:46] VITALS: BP 141/92
[2017-01-20] MEDS ORDERED: WARFARIN 5 MG TABLET PO-COUM ONE (15:00)
[2017-01-20] MEDS: ONDANSETRON 2MG/ML, 2ML IVPush PRN (16:08)
[2017-01-20 19:52] VITALS: BP 122/78
[2017-01-20] MEDS: HYDROmorphone 2 MG/ML, 1ML IVPush PRN (20:30)
[2017-01-21 00:55] VITALS: BP 102/63
[2017-01-21 05:45] LABS: BLOOD UREA NITROGEN 4 mg/dL (7-18)
[2017-01-21 05:50] LABS: ASPARTATE AMINO TRANSFERASE 33 U/L (15-37)
[2017-01-21 05:58] LABS: HEMATOCRIT 24.5 % (34.6-47.8); HEMOGLOBIN 8.1 g/dL (11.7-16.4); WHITE BLOOD COUNT 2.3 x10^3/uL (3.4-10)
[2017-01-21] MEDS: HEPARIN 25,000 UNITS/500ML PMX 500 ML IV PRN ×2 (06:25→20:55)
[2017-01-21 08:42] VITALS: BP 105/69
[2017-01-21] MEDS: DOCUSATE 100 MG CAPSULE PO SCH (09:00)
[2017-01-21] MEDS: PANTOPROZOLE 40MG TABLET PO SCH ×2 (09:12→20:23)
[2017-01-21] MEDS: SUCRALFATE 1 GM TABLET PO SCH ×4 (09:12→20:22)
[2017-01-21] MEDS: MULTIVITAMIN 1 TABLET PO SCH (09:12)
[2017-01-21] MEDS: HYDROXYCHLOROQUINE 200 MG TABLET PO SCH (09:12)
[2017-01-21 14:00] VITALS: BP 149/90
[2017-01-21] MEDS: WARFARIN 5 MG TABLET PO-COUM SCH (17:43)
[2017-01-21 19:55] VITALS: BP 135/79
[2017-01-21] MEDS: HYDROmorphone 2 MG/ML, 1ML IVPush PRN (20:19)
[2017-01-22 02:20] VITALS: BP 118/77
[2017-01-22 05:34] LABS: HEMATOCRIT 26.6 % (34.6-47.8); HEMOGLOBIN 8.8 g/dL (11.7-16.4)
[2017-01-22 05:46] LABS: ANTI-Xa-UNFRACTIONATED HEP 0.49 IU/mL (0.30-0.70)
[2017-01-22 05:47] LABS: BLOOD UREA NITROGEN 8 mg/dL (7-18)
[2017-01-22 05:51] LABS: ASPARTATE AMINO TRANSFERASE 35 U/L (15-37)
[2017-01-22 07:09] LABS: DIFF TOTAL CELLS COUNTED 100 CELL DIFF
[2017-01-22 07:14] LABS: ANISOCYTOSIS 1+; OVALOCYTES 1+; POLYCHROMASIA 1+; VERIFY COUNTS? YES
[2017-01-22 07:15] LABS: SMALL PLATELETS 1+
[2017-01-22] MEDS ORDERED: POTASSIUM CHLORIDE 20 MEQ TAB.ER.PRT PO ONE (08:00)
[2017-01-22 08:18] VITALS: BP 125/80
[2017-01-22] MEDS: DOCUSATE 100 MG CAPSULE PO SCH (09:00)
[2017-01-22] MEDS: MULTIVITAMIN 1 TABLET PO SCH (09:54)
[2017-01-22] MEDS: PANTOPROZOLE 40MG TABLET PO SCH ×2 (09:54→21:31)
[2017-01-22] MEDS: SUCRALFATE 1 GM TABLET PO SCH ×4 (09:54→21:31)
[2017-01-22 12:38] VITALS: BP 130/81
[2017-01-22] MEDS: WARFARIN 5 MG TABLET PO-COUM SCH (17:35)
[2017-01-22 21:06] VITALS: BP 134/80
[2017-01-22] MEDS: HEPARIN 25,000 UNITS/500ML PMX 500 ML IV PRN (23:21)
[2017-01-23 03:26] VITALS: BP 111/72
[2017-01-23 05:00] LABS: HEMATOCRIT 25.9 % (34.6-47.8); HEMOGLOBIN 8.6 g/dL (11.7-16.4)
[2017-01-23 05:18] LABS: BLOOD UREA NITROGEN 6 mg/dL (7-18)
[2017-01-23 05:21] LABS: ASPARTATE AMINO TRANSFERASE 37 U/L (15-37)
[2017-01-23 07:38] VITALS: BP 106/69
[2017-01-23] MEDS: DOCUSATE 100 MG CAPSULE PO SCH (09:00)
[2017-01-23] MEDS: SUCRALFATE 1 GM TABLET PO SCH ×4 (10:00→21:01)
[2017-01-23] MEDS: PANTOPROZOLE 40MG TABLET PO SCH ×2 (10:01→21:01)
[2017-01-23] MEDS: MULTIVITAMIN 1 TABLET PO SCH (10:01)
[2017-01-23 12:35] VITALS: BP 120/80
[2017-01-23] MEDS: HEPARIN 25,000 UNITS/500ML PMX 500 ML IV PRN (13:27)
[2017-01-23] MEDS: WARFARIN 5 MG TABLET PO-COUM SCH (18:26)
[2017-01-23 19:15] VITALS: BP 117/81
[2017-01-24] MEDS: CALCIUM CARBONATE 500 MG TAB.CHEW PO PRN (00:49)
[2017-01-24 01:01] VITALS: BP 105/67
[2017-01-24] MEDS: HEPARIN 25,000 UNITS/500ML PMX 500 ML IV PRN ×2 (04:29→19:56)
[2017-01-24 05:31] LABS: ANTI-Xa-UNFRACTIONATED HEP 0.48 IU/mL (0.30-0.70)
[2017-01-24 05:37] LABS: HEMATOCRIT 27.1 % (34.6-47.8); HEMOGLOBIN 8.9 g/dL (11.7-16.4)
[2017-01-24 05:45] LABS: WHITE BLOOD COUNT 1.8 x10^3/uL (3.4-10)
[2017-01-24 05:50] LABS: ASPARTATE AMINO TRANSFERASE 40 U/L (15-37); BLOOD UREA NITROGEN 7 mg/dL (7-18)
[2017-01-24 06:55] LABS: DIFF TOTAL CELLS COUNTED 100 CELL DIFF
[2017-01-24 06:58] LABS: ANISOCYTOSIS 1+; HYPOCHROMIA 1+; VERIFY COUNTS? YES
[2017-01-24 06:59] LABS: POIKILOCYTOSIS 1+; SPHEROCYTES 1+
[2017-01-24] MEDS: HYDROXYCHLOROQUINE 200 MG TABLET PO SCH (08:28)
[2017-01-24] MEDS: DOCUSATE 100 MG CAPSULE PO SCH (08:28)
[2017-01-24] MEDS: PANTOPROZOLE 40MG TABLET PO SCH ×2 (08:28→20:01)
[2017-01-24] MEDS: SUCRALFATE 1 GM TABLET PO SCH ×4 (08:28→20:01)
[2017-01-24 08:44] VITALS: BP 112/75
[2017-01-24] MEDS: MULTIVITAMIN 1 TABLET PO SCH (10:46)
[2017-01-24 13:15] VITALS: BP 118/80
[2017-01-24 14:43] LABS: FERRITIN 277.9 ng/mL (8-252)
[2017-01-24 15:07] LABS: FACTOR II DNA ANALYSIS Negative (.)
[2017-01-24 20:00] VITALS: BP 117/82
[2017-01-24] MEDS: ONDANSETRON 2MG/ML, 2ML IVPush PRN (23:15)
[2017-01-25 04:42] VITALS: BP 117/75
[2017-01-25 05:56] LABS: BLOOD UREA NITROGEN 6 mg/dL (7-18)
[2017-01-25 06:01] LABS: ASPARTATE AMINO TRANSFERASE 42 U/L (15-37); HEMATOCRIT 28.3 % (34.6-47.8); HEMOGLOBIN 9.3 g/dL (11.7-16.4)
[2017-01-25 06:19] LABS: WHITE BLOOD COUNT 1.9 x10^3/uL (3.4-10)
[2017-01-25 06:34] LABS: DIFF TOTAL CELLS COUNTED 100 CELL DIFF
[2017-01-25 06:39] LABS: ANISOCYTOSIS 1+; HYPOCHROMIA 1+; POLYCHROMASIA 1+; VERIFY COUNTS? YES
[2017-01-25 06:40] LABS: OVALOCYTES 1+; POIKILOCYTOSIS 1+
[2017-01-25 07:34] VITALS: BP 114/76
[2017-01-25 07:37] LABS: ANTI-Xa-UNFRACTIONATED HEP 0.64 IU/mL (0.30-0.70)
[2017-01-25] MEDS ORDERED: LIDOCAINE 1%, 20ML ONE (08:50)
[2017-01-25] MEDS ORDERED: FENTANYL PF 100 MCG/2ML ONE (08:53)
[2017-01-25] MEDS ORDERED: FLUMAZENIL 0.1 MG/1 ML, 5ML ONE (08:53)
[2017-01-25] MEDS ORDERED: MIDAZOLAM 1 MG/ML, 5ML ONE (08:53)
[2017-01-25] MEDS ORDERED: NALOXONE 1 MG/ML, 2ML ONE (08:53)
[2017-01-25] MEDS ORDERED: ONDANSETRON 2MG/ML, 2ML ONE (09:13)
[2017-01-25] MEDS: DOCUSATE 100 MG CAPSULE PO SCH (10:36)
[2017-01-25] MEDS: SUCRALFATE 1 GM TABLET PO SCH ×4 (10:36→20:59)
[2017-01-25] MEDS: PANTOPROZOLE 40MG TABLET PO SCH ×2 (10:36→20:59)
[2017-01-25] MEDS: MULTIVITAMIN 1 TABLET PO SCH (10:36)
[2017-01-25 10:40] VITALS: BP 101/68
[2017-01-25] MEDS: HEPARIN 25,000 UNITS/500ML PMX 500 ML IV PRN (11:22)
[2017-01-25 15:00] VITALS: BP 107/62
[2017-01-25] MEDS: HYDROmorphone 2 MG/ML, 1ML IVPush PRN (15:57)
[2017-01-25] MEDS: ONDANSETRON 2MG/ML, 2ML IVPush PRN (15:57)
[2017-01-25] MEDS: WARFARIN HIGH DOSE PROTOCOL XX SCH (17:21)
[2017-01-25] MEDS ORDERED: WARFARIN 5 MG TABLET PO-COUM ONE (18:00)
[2017-01-25 20:00] VITALS: BP 103/66
[2017-01-25] MEDS: OXYcodone IR 5MG TABLET PO PRN (20:58)
[2017-01-26] MEDS: HEPARIN 25,000 UNITS/500ML PMX 500 ML IV PRN ×2 (01:24→15:28)
[2017-01-26 02:00] VITALS: BP 111/72
[2017-01-26 06:34] LABS: ASPARTATE AMINO TRANSFERASE 34 U/L (15-37); BLOOD UREA NITROGEN 7 mg/dL (7-18)
[2017-01-26 06:39] LABS: HEMOGLOBIN 9.3 g/dL (11.7-16.4)
[2017-01-26 06:42] LABS: WHITE BLOOD COUNT 1.9 x10^3/uL (3.4-10)
[2017-01-26 07:00] LABS: ANTI-Xa-UNFRACTIONATED HEP 0.37 IU/mL (0.30-0.70)
[2017-01-26] MEDS: SUCRALFATE 1 GM TABLET PO SCH ×4 (07:00→20:28)
[2017-01-26 07:01] LABS: DIFF TOTAL CELLS COUNTED 100 CELL DIFF
[2017-01-26 07:05] LABS: VERIFY COUNTS? YES
[2017-01-26 07:06] LABS: ANISOCYTOSIS 1+; HYPOCHROMIA 1+; POIKILOCYTOSIS 1+
[2017-01-26 07:07] LABS: SPHEROCYTES 1+
[2017-01-26 08:00] VITALS: BP 112/71
[2017-01-26] MEDS: PANTOPROZOLE 40MG TABLET PO SCH ×2 (10:42→20:27)
[2017-01-26] MEDS: MULTIVITAMIN 1 TABLET PO SCH (10:43)
[2017-01-26] MEDS: HYDROXYCHLOROQUINE 200 MG TABLET PO SCH (10:43)
[2017-01-26] MEDS: DOCUSATE 100 MG CAPSULE PO SCH (10:43)
[2017-01-26] MEDS: WARFARIN HIGH DOSE PROTOCOL XX SCH (12:00)
[2017-01-26 14:00] VITALS: BP 121/76
[2017-01-26] MEDS ORDERED: WARFARIN 5 MG TABLET PO-COUM ONE (18:00)
[2017-01-26 20:00] VITALS: BP 135/78
[2017-01-27 02:00] VITALS: BP 123/73
[2017-01-27 05:57] LABS: ASPARTATE AMINO TRANSFERASE 32 U/L (15-37); BLOOD UREA NITROGEN 6 mg/dL (7-18)
[2017-01-27 06:01] LABS: HEMATOCRIT 27.4 % (34.6-47.8); HEMOGLOBIN 9.1 g/dL (11.7-16.4); WHITE BLOOD COUNT 2.3 x10^3/uL (3.4-10)
[2017-01-27] MEDS: HEPARIN 25,000 UNITS/500ML PMX 500 ML IV PRN ×2 (06:22→22:23)
[2017-01-27 06:27] LABS: ANTI-Xa-UNFRACTIONATED HEP 0.73 IU/mL (0.30-0.70)
[2017-01-27 08:59] VITALS: BP 101/65
[2017-01-27] MEDS: MULTIVITAMIN 1 TABLET PO SCH (09:24)
[2017-01-27] MEDS: PANTOPROZOLE 40MG TABLET PO SCH ×2 (09:24→21:24)
[2017-01-27] MEDS: SUCRALFATE 1 GM TABLET PO SCH ×4 (09:25→21:00)
[2017-01-27] MEDS: DOCUSATE 100 MG CAPSULE PO SCH (09:25)
[2017-01-27 13:16] VITALS: BP 140/85
[2017-01-27] MEDS: WARFARIN HIGH DOSE PROTOCOL XX SCH (13:25)
[2017-01-27] MEDS ORDERED: WARFARIN 5 MG TABLET PO-COUM SCH (18:00)
[2017-01-27 19:23] VITALS: BP 136/97
[2017-01-28 02:59] VITALS: BP 119/76
[2017-01-28 05:01] LABS: HEMATOCRIT 28.2 % (34.6-47.8); HEMOGLOBIN 9.2 g/dL (11.7-16.4); WHITE BLOOD COUNT 2.3 x10^3/uL (3.4-10)
[2017-01-28 05:23] LABS: ASPARTATE AMINO TRANSFERASE 35 U/L (15-37); BLOOD UREA NITROGEN 4 mg/dL (7-18)
[2017-01-28 05:53] LABS: DIFF TOTAL CELLS COUNTED 100 CELL DIFF
[2017-01-28 05:56] LABS: ANISOCYTOSIS 1+; POLYCHROMASIA 1+; VERIFY COUNTS? YES
[2017-01-28 06:37] LABS: ANTI-Xa-UNFRACTIONATED HEP 0.56 IU/mL (0.30-0.70)
[2017-01-28 06:45] VITALS: BP 112/70
[2017-01-28] MEDS: SUCRALFATE 1 GM TABLET PO SCH ×4 (07:00→21:00)
[2017-01-28] MEDS: PANTOPROZOLE 40MG TABLET PO SCH ×2 (09:31→22:43)
[2017-01-28] MEDS: HYDROXYCHLOROQUINE 200 MG TABLET PO SCH (09:32)
[2017-01-28] MEDS: DOCUSATE 100 MG CAPSULE PO SCH (09:32)
[2017-01-28] MEDS: MULTIVITAMIN 1 TABLET PO SCH (09:32)
[2017-01-28] MEDS: WARFARIN HIGH DOSE PROTOCOL XX SCH (12:00)
[2017-01-28 13:32] VITALS: BP 123/85
[2017-01-28] MEDS: HEPARIN 25,000 UNITS/500ML PMX 500 ML IV PRN (15:21)
[2017-01-28] MEDS ORDERED: WARFARIN 3 MG TABLET PO-COUM SCH (18:00)
[2017-01-28 18:55] VITALS: BP 123/81
[2017-01-29 02:58] VITALS: BP 117/72
[2017-01-29] MEDS: HEPARIN 25,000 UNITS/500ML PMX 500 ML IV PRN ×2 (07:38→22:39)
[2017-01-29 08:01] VITALS: BP 117/76
[2017-01-29 08:08] LABS: BLOOD UREA NITROGEN 7 mg/dL (7-18); HEMATOCRIT 29.5 % (34.6-47.8); HEMOGLOBIN 9.8 g/dL (11.7-16.4)
[2017-01-29 08:10] LABS: WHITE BLOOD COUNT 1.9 x10^3/uL (3.4-10)
[2017-01-29 08:11] LABS: ASPARTATE AMINO TRANSFERASE 36 U/L (15-37)
[2017-01-29 08:16] LABS: ANTI-Xa-UNFRACTIONATED HEP 0.24 IU/mL (0.30-0.70)
[2017-01-29] MEDS: PANTOPROZOLE 40MG TABLET PO SCH ×2 (09:00→21:31)
[2017-01-29] MEDS: MULTIVITAMIN 1 TABLET PO SCH (09:00)
[2017-01-29] MEDS: SUCRALFATE 1 GM/10 ML UDC PO SCH ×4 (09:00→21:31)
[2017-01-29] MEDS: DOCUSATE 100 MG CAPSULE PO SCH (09:00)
[2017-01-29] MEDS: HEPARIN 5,000 UNITS/ML, 1ML IV PRN (09:01)
[2017-01-29 13:40] VITALS: BP 121/82
[2017-01-29 19:50] VITALS: BP 132/84
[2017-01-30 02:00] VITALS: BP 119/79
[2017-01-30 05:52] LABS: HEMATOCRIT 28.9 % (34.6-47.8); HEMOGLOBIN 9.6 g/dL (11.7-16.4); WHITE BLOOD COUNT 2.3 x10^3/uL (3.4-10)
[2017-01-30 05:56] LABS: ANTI-Xa-UNFRACTIONATED HEP 0.57 IU/mL (0.30-0.70)
[2017-01-30 06:27] LABS: ASPARTATE AMINO TRANSFERASE 34 U/L (15-37); BLOOD UREA NITROGEN 8 mg/dL (7-18)
[2017-01-30 06:30] LABS: DIFF TOTAL CELLS COUNTED 100 CELL DIFF
[2017-01-30] MEDS: SUCRALFATE 1 GM/10 ML UDC PO SCH ×4 (07:00→21:27)
[2017-01-30 07:25] LABS: ANISOCYTOSIS 1+; POLYCHROMASIA 1+; VERIFY COUNTS? YES
[2017-01-30 07:29] VITALS: BP 115/70
[2017-01-30] MEDS ORDERED: [UNRECOGNIZED DRUG - REMARK] XX PRN (07:30)
[2017-01-30] MEDS ORDERED: ENOXAPARIN 100 MG/ML SQ SCH (08:00)
[2017-01-30] MEDS ORDERED: [UNRECOGNIZED DRUG - REMARK] XX ONE (08:00)
[2017-01-30] MEDS ORDERED: ENOXAPARIN 80 MG/0.8 ML SQ SCH (09:00)
[2017-01-30] MEDS: DOCUSATE 100 MG CAPSULE PO SCH (09:24)
[2017-01-30] MEDS: PANTOPROZOLE 40MG TABLET PO SCH ×2 (09:24→21:27)
[2017-01-30] MEDS: MULTIVITAMIN 1 TABLET PO SCH (09:24)
[2017-01-30] MEDS ORDERED: POTASSIUM CHLORIDE 20 MEQ TAB.ER.PRT PO ONE (12:30)
[2017-01-30 14:30] VITALS: BP_SYST 114; BP_SYST 121; BP_SYST 130; BP_DIAS 73; BP_DIAS 82; BP_DIAS 87
[2017-01-30] MEDS ORDERED: ACETAMINOPHEN 650 MG SUPP PR PRN (20:00)
[2017-01-30] MEDS ORDERED: ACETAMINOPHEN 325 MG TABLET PO PRN (20:00)
[2017-01-30] MEDS ORDERED: POLYETHYLENE GLYCOL 17 GM PACKET PO PRN (20:00)
[2017-01-30] MEDS ORDERED: PROMETHAZINE 25 MG/ML, 1ML IM PRN (20:00)
[2017-01-30] MEDS ORDERED: BISACODYL 10 MG SUPP PR PRN (20:00)
[2017-01-30] MEDS ORDERED: ZOLPIDEM 5MG TABLET PO PRN (20:00)
[2017-01-30 20:16] VITALS: BP 124/87
[2017-01-30 20:18] VITALS: BP_SYST 120; BP_SYST 124; BP_SYST 131; BP_DIAS 80; BP_DIAS 84; BP_DIAS 87
[2017-01-30] MEDS: ENOXAPARIN 100 MG/ML SQ SCH (21:27)
[2017-01-31 03:15] VITALS: BP_SYST 112; BP_SYST 122; BP_SYST 137; BP_DIAS 69; BP_DIAS 87; BP_DIAS 89
[2017-01-31 06:10] LABS: HEMATOCRIT 27.8 % (34.6-47.8); HEMOGLOBIN 9.3 g/dL (11.7-16.4); WHITE BLOOD COUNT 2.1 x10^3/uL (3.4-10)
[2017-01-31 06:47] LABS: ASPARTATE AMINO TRANSFERASE 39 U/L (15-37); BLOOD UREA NITROGEN 6 mg/dL (7-18)
[2017-01-31 08:42] VITALS: BP 122/82
[2017-01-31] MEDS: SUCRALFATE 1 GM/10 ML UDC PO SCH ×4 (08:47→20:49)
[2017-01-31] MEDS: MULTIVITAMIN 1 TABLET PO SCH (09:49)
[2017-01-31] MEDS: PANTOPROZOLE 40MG TABLET PO SCH ×2 (09:49→20:49)
[2017-01-31] MEDS: ENOXAPARIN 100 MG/ML SQ SCH ×2 (09:49→20:49)
[2017-01-31] MEDS: DOCUSATE 100 MG CAPSULE PO SCH (09:49)
[2017-01-31] MEDS: HYDROXYCHLOROQUINE 200 MG TABLET PO SCH (09:49)
[2017-01-31 13:41] VITALS: BP 120/79
[2017-01-31 20:00] VITALS: BP 124/80
[2017-02-01 00:26] LABS: OCCBLD OBC PASS
[2017-02-01 03:00] VITALS: BP 125/72
[2017-02-01 05:12] LABS: HEMOGLOBIN 9.6 g/dL (11.7-16.4); WHITE BLOOD COUNT 2.5 x10^3/uL (3.4-10)
[2017-02-01 05:25] LABS: ASPARTATE AMINO TRANSFERASE 30 U/L (15-37); BLOOD UREA NITROGEN 8 mg/dL (7-18)
[2017-02-01] MEDS: SUCRALFATE 1 GM/10 ML UDC PO SCH ×4 (07:17→20:06)
[2017-02-01 07:48] VITALS: BP 109/73
[2017-02-01] MEDS ORDERED: POTASSIUM CHLORIDE 20 MEQ TAB.ER.PRT PO ONE (08:00)
[2017-02-01] MEDS: DOCUSATE 100 MG CAPSULE PO SCH (08:42)
[2017-02-01] MEDS: PANTOPROZOLE 40MG TABLET PO SCH ×2 (08:43→20:06)
[2017-02-01] MEDS: MULTIVITAMIN 1 TABLET PO SCH (08:43)
[2017-02-01] MEDS: ENOXAPARIN 100 MG/ML SQ SCH ×2 (09:37→20:06)
[2017-02-01 14:18] VITALS: BP 116/82
[2017-02-01 18:49] VITALS: BP 144/82
[2017-02-02 02:00] VITALS: BP 113/78
[2017-02-02 05:34] LABS: HEMATOCRIT 29.6 % (34.6-47.8); HEMOGLOBIN 9.8 g/dL (11.7-16.4); WHITE BLOOD COUNT 2.1 x10^3/uL (3.4-10)
[2017-02-02 05:57] LABS: ASPARTATE AMINO TRANSFERASE 27 U/L (15-37); BLOOD UREA NITROGEN 11 mg/dL (7-18)
[2017-02-02 08:23] VITALS: BP 125/86
[2017-02-02] MEDS: SUCRALFATE 1 GM/10 ML UDC PO SCH ×3 (08:54→16:45)
[2017-02-02] MEDS: MULTIVITAMIN 1 TABLET PO SCH (08:55)
[2017-02-02] MEDS: HYDROXYCHLOROQUINE 200 MG TABLET PO SCH (08:55)
[2017-02-02] MEDS: PANTOPROZOLE 40MG TABLET PO SCH (08:55)
[2017-02-02] MEDS: DOCUSATE 100 MG CAPSULE PO SCH (08:56)
[2017-02-02] MEDS: ENOXAPARIN 100 MG/ML SQ SCH (09:00)
[2017-02-02 14:07] VITALS: BP 122/86
[2017-02-02] MEDS ORDERED: PANT40TA5 PO (14:58)
[2017-02-02] MEDS ORDERED: SUCR1ORA5 PO (14:58)
[2017-02-02] MEDS ORDERED: ENOX100S4 SQ (14:58)
[2017-02-02] MEDS ORDERED: TRAM50TA2 PO (15:00)
== END 2017-02-02 20:36 | disposition home or self-care (01) | DRG 252 ==
LOC: ED 15:34 → EDIP 19:16 → SUATTDRO 19:49 → 4WST 22:02 → CCU 01-07 17:48 → 5SO 01-08 21:20 → 4WST 01-09 12:50 → CCU 01-14 21:13 → 4WST 01-19 18:08
PROVIDERS: ATTEND Hospitalist
PROC: 047D3ZZ Dilation of Left Common Iliac Artery, Percutaneous Approach (ICD-10-PCS; principal; 2017-01-07)
PROC: B51C1ZZ Fluoroscopy of Left Lower Extremity Veins using Low Osmolar Contrast (ICD-10-PCS; 2017-01-16)
DX: I82.422 Acute embolism and thrombosis of left iliac vein (principal); E43 Unspecified severe protein-calorie malnutrition; I74.5 Embolism and thrombosis of iliac artery; D68.59 Other primary thrombophilia; D69.6 Thrombocytopenia, unspecified; I80.10 Phlebitis and thrombophlebitis of unspecified femoral vein; I87.1 Compression of vein; O99.42 Diseases of the circulatory system complicating childbirth; O72.1 Other immediate postpartum hemorrhage; O99.12 Other diseases of the blood and blood-forming organs and certain disorders involving the immune mechanism complicating childbirth; I82.419 Acute embolism and thrombosis of unspecified femoral vein; D70.9 Neutropenia, unspecified; I82.432 Acute embolism and thrombosis of left popliteal vein; D64.9 Anemia, unspecified; Z68.29 Body mass index [BMI] 29.0-29.9, adult; I82.819 Embolism and thrombosis of superficial veins of unspecified lower extremity; I82.91 Chronic embolism and thrombosis of unspecified vein; M32.9 Systemic lupus erythematosus, unspecified; M54.30 Sciatica, unspecified side; N71.9 Inflammatory disease of uterus, unspecified; O12.04 Gestational edema, complicating childbirth; O25.2 Malnutrition in childbirth; O99.02 Anemia complicating childbirth; O99.89 Other specified diseases and conditions complicating pregnancy, childbirth and the puerperium; Z51.5 Encounter for palliative care; Z79.01 Long term (current) use of anticoagulants; Z79.82 Long term (current) use of aspirin; Z80.0 Family history of malignant neoplasm of digestive organs; Z82.49 Family history of ischemic heart disease and other diseases of the circulatory system; Z86.718 Personal history of other venous thrombosis and embolism; Z86.72 Personal history of thrombophlebitis; Z87.891 Personal history of nicotine dependence; Z83.3 Family history of diabetes mellitus
CPT/HCPCS: 36415; 37187; 37212; 37213; 37214; 37237; 37238; 37248; 71275; 74177; 76937; 77012; 80048; 80053; 80202; 81001; 81240; 81241; 82040; 82272; 82306; 82378; 82550; 82607; 82728; 82746; 83010; 83540; 83550; 83615; 83735; 84134; 84443; 84484; 85014; 85018; 85025; 85045; 85097; 85384; 85520; 85598; 85610; 85613; 85651; 85670; 85730; 85732; 86038; 86039; 86146; 86147; 86304; 86850; 86880; 86900; 86923; 87040; 87077; 87081; 87086; 87186; 88237; 88264; 88280; 88305; 88311; 88313; 93005; 93970; 93971; 96365; 96375; 96376; 99156; 99157; C1725; G0364; J0696; J1170; J1644; J1650; J1885; J2175; J2250; J2405; J2997; J3010; J3360; J3370; J3490; Q9966; Q9967; C1751; C1757; C1769; C1773; C1876; C1894; C9113; J1200; J2310; J7030; J7040; J7050; P9016

== ENCOUNTER → 2017-02-25 | Outpatient (CLI) | payer BC ==
[~2017-02-25] MED LIST changes: +ENOX100S4 SQ; +PANT40TA5 PO; +SUCR1ORA5 PO; +TRAM50TA2 PO
== END | disposition home or self-care (01) ==
LOC: CFH 12:50
PROVIDERS: ATTEND Internal Medicine
DX: R07.9 Chest pain, unspecified (principal); Z87.891 Personal history of nicotine dependence
CPT/HCPCS: 93306

== ENCOUNTER 2019-11-02 23:46 | Emergency (ER) | payer BC, OTHER ==
[~2019-11-02] VITALS: Ht 170.2 cm; Wt 92.0 kg
[~2019-11-02 23:46] MED LIST changes: -HYDR200T PO; +HYDR200T72 PO; -WARF5TAB PO-COUM; +WARF5TAB2 PO-COUM
[2019-11-03] MEDS ORDERED: SODIUM CHLORIDE 0.9% 1,000 ML IV ONE (00:17)
[2019-11-03] MEDS ORDERED: MORPHINE SULFATE 4 MG/ML, 1ML ONE (00:27)
[2019-11-03] MEDS ORDERED: KETOROLAC 30 MG/1 ML ONE (00:27)
[2019-11-03] MEDS ORDERED: ONDANSETRON 2MG/ML, 2ML ONE (00:27)
[2019-11-03] MEDS ORDERED: KETOROLAC 30 MG/1 ML IVPush ONE (00:30)
[2019-11-03] MEDS ORDERED: SODIUM CHLORIDE FLUSH 10ML SYR IVF ONE (00:30)
[2019-11-03] MEDS ORDERED: ONDANSETRON 2MG/ML, 2ML IVPush ONE (00:30)
[2019-11-03] MEDS ORDERED: MORPHINE SULFATE 4 MG/ML, 1ML IVPush PRN (00:30)
[2019-11-03 00:34] LABS: BASOPHILS # (AUTO) 0.03 x10^3/uL (0-0.1); BASOPHILS % (AUTO) 1 % (0-1); EOSINOPHILS # (AUTO) 0.04 x10^3/uL (0-0.4); EOSINOPHILS % (AUTO) 1 % (1-7); LYMPHOCYTES # (AUTO) 1.46 x10^3/uL (1-3.4); LYMPHOCYTES % (AUTO) 42 % (22-44); MD NO; MEAN CORPUSCULAR HEMOGLOBIN 30.5 pg (27.0-34.8); MEAN CORPUSCULAR HGB CONC 33.4 g/dL (32.4-35.8); MEAN CORPUSCULAR VOLUME 91.3 fL (80-100); MEAN PLATELET VOLUME 7.7 fL (7.4-10.4); MONOCYTES # (AUTO) 0.39 x10^3/uL (0.2-0.8); MONOCYTES % (AUTO) 11 % (2-9); NEUTROPHILS # (AUTO) 1.53 x10^3/uL (1.8-6.8); NEUTROPHILS % (AUTO) 44 % (42-75); PLATELET COUNT 261 x10^3/uL (130-400); RED BLOOD COUNT 4.27 x10^6/uL (3.82-5.3); RED CELL DISTRIBUTION WIDTH 14.1 % (9.6-15.2)
[2019-11-03 00:42] LABS: ALANINE AMINOTRANSFERASE 24 U/L (12-78); ALBUMIN 3.5 g/dL (3.4-5.0); ANION GAP 7 mmol/L (5-15); CHLORIDE 107 mmol/L (98-107); CREATININE 0.76 mg/dL (0.55-1.02)
--- NOTE | 2019-11-03 00:42 | NUR ---
PT STATES SHE HAD SUDDEN ONSET CP THIS EVENING AROUND 2200. PAIN WITH INSPIRATION. RIGHT SIDED CP, RADIATING TO RIGHT ARM/RIGHT NECK/RIGHT BACK WITH NAUSEA, NO VOMITTING. HX DVT. TAKES BLOOD THINNERS. PIV PLACED, PT ATTACHED TO ALL MONITORS AND LABS DRAWN, TUBED TO LAB. PT MEDICATED FOR PAIN PER EMAR AND IVF STARTED. POC DISCUSSED WITH PT AND QUESTIONS ANSWERED. CALL LIGHT ON LAP.
[2019-11-03 00:47] LABS: ALKALINE PHOSPHATASE 55 U/L (45-117); BILIRUBIN,TOTAL 0.1 mg/dL (0.2-1.0); TOTAL PROTEIN 7.9 g/dL (6.4-8.2); TROPONIN I < 0.015 ng/mL (0.000-0.045)
[2019-11-03 00:52] LABS: INTERNATIONAL NORMALIZED RATIO 0.93 (0.93-1.1); PROTHROMBIN TIME 9.8 Seconds (9.6-11.5)
--- NOTE | 2019-11-03 01:07 | NUR ---
PT TO CT AT THIS TIME
--- NOTE | 2019-11-03 01:25 | NUR ---
PT BACK FROM CTA AND VERBALIZED RELIEF FROM PAIN. STATES SHE DOES NOT WANT ANY MORE PAIN MEDS AT THIS TIME.
[2019-11-03 01:59] VITALS: BP 127/75
[2019-11-03] MEDS ORDERED: AZITHROMYCIN 250 MG TABLET ONE (02:26)
[2019-11-03] MEDS ORDERED: OMNIPAQUE 350 MG/ML, 100ML BOTTLE ONE (04:28)
== END 2019-11-03 02:36 | disposition home or self-care (01) ==
LOC: ED 11-03 02:30
DX: J15.9 Unspecified bacterial pneumonia (principal); R07.1 Chest pain on breathing; I45.9 Conduction disorder, unspecified; M32.9 Systemic lupus erythematosus, unspecified; Z86.718 Personal history of other venous thrombosis and embolism; Z87.891 Personal history of nicotine dependence
CPT/HCPCS: 36415; 71275; 80053; 83880; 84484; 84703; 85025; 85610; 85730; 93005; 96374; 96375; 99285; J1885; J2270; J2405; J7030; Q9967

== ENCOUNTER → 2020-01-11 | Outpatient (CLI) | payer OTHER ==
[~2020-01-11] MED LIST changes: -PANT40TA5 PO; +PANT40TA6 PO
== END | disposition home or self-care (01) ==
LOC: CFH 07:50
PROVIDERS: ATTEND Physician Assistant
DX: R14.0 Abdominal distension (gaseous) (principal); R11.2 Nausea with vomiting, unspecified; R12 Heartburn; K52.9 Noninfective gastroenteritis and colitis, unspecified
CPT/HCPCS: 74240; 76705

== ENCOUNTER → 2020-09-01 | Outpatient (CLI) | payer OTHER ==
[~2020-09-01] MED LIST changes: +ASPI81TA45 PO; -CLIN300C8 PO; +CLIN300C9 PO; +HYDR-2214 PO; -HYDR-3240 PO; -OXYC-302 PO; +OXYC1TAB14 PO; +collagen PO
[2020-09-01 10:39] LABS: ANION GAP 5 mmol/L (5-15); BASOPHILS % (AUTO) 2 % (0-1); CHLORIDE 107 mmol/L (98-107); CREATININE 0.84 mg/dL (0.55-1.02); EOSINOPHILS % (AUTO) 1 % (1-7); LYMPHOCYTES % (AUTO) 40 % (22-44); MEAN CORPUSCULAR HGB CONC 33.6 g/dL (32.4-35.8); MEAN PLATELET VOLUME 7.7 fL (7.4-10.4); MONOCYTES % (AUTO) 15 % (2-9); NEUTROPHILS % (AUTO) 42 % (42-75); PLATELET COUNT 321 x10^3/uL (130-400); RED CELL DISTRIBUTION WIDTH 14.8 % (9.6-15.2)
[2020-09-01 11:04] LABS: MD SCAN
== END | disposition home or self-care (01) ==
LOC: STAR 09:14
PROVIDERS: ATTEND Obstetrics & Gynecology
DX: Z01.812 Encounter for preprocedural laboratory examination (principal); M54.2 Cervicalgia; Z20.822 Contact with and (suspected) exposure to COVID-19
CPT/HCPCS: 36415; 80048; 84702; 85025; U0003

== ENCOUNTER 2020-09-05 05:48 | Day surgery (SDC) | payer OTHER, BC ==
[~2020-09-05] VITALS: Ht 170.2 cm; Wt 93.0 kg
[2020-09-05 06:10] VITALS: BP 124/85
[2020-09-05] MEDS ORDERED: LIDOCAINE-MPF 1%, 2ML INFIL ONE (06:30)
[2020-09-05] MEDS ORDERED: CHLORHEXIDINE 15 ML UDC PO ONE (06:30)
[2020-09-05] MEDS ORDERED: LACTATED RINGERS 1,000 ML IV SCH (06:30)
[2020-09-05 06:40] LABS: HCG UR SG 1.017 (1.003-1.030)
[2020-09-05] MEDS ORDERED: FENTANYL PF 250 MCG/5ML ONE (06:56)
[2020-09-05] MEDS ORDERED: FENTANYL PF 100 MCG/2ML ONE (06:56)
[2020-09-05] MEDS ORDERED: MIDAZOLAM 1 MG/ML, 2ML ONE (06:56)
[2020-09-05] MEDS ORDERED: PROPOFOL 50 ML ONE (06:57)
[2020-09-05] MEDS ORDERED: EPINEPHRINE 1 MG/ML, 1ML ONE (07:14)
[2020-09-05] MEDS ORDERED: BUPIVACAINE/PF 0.25% ONE (07:14)
[2020-09-05] MEDS ORDERED: CEFAZOLIN 1,000 MG ONE (07:30)
[2020-09-05] MEDS ORDERED: METOCLOPRAMIDE 5 MG/ML, 2ML ONE (07:30)
[2020-09-05] MEDS ORDERED: ONDANSETRON 2MG/ML, 2ML ONE (07:30)
[2020-09-05] MEDS ORDERED: LORazepam 2 MG/ML, 1ML IVPush PRN (08:00)
[2020-09-05] MEDS ORDERED: MEPERIDINE/PF 25MG/0.5ML IVPush PRN (08:00)
[2020-09-05] MEDS ORDERED: METHOCARBAMOL 1,000 MG in DEXTROSE 5% 100 ML IV PRN (08:00)
[2020-09-05] MEDS ORDERED: OXYcodone 5 MG/5 ML ORAL.SOL UDC PO PRN (08:00)
[2020-09-05] MEDS ORDERED: HYDROmorphone 1 MG/ML, 1ML INJ IVPush PRN (08:00)
[2020-09-05] MEDS ORDERED: ACETAMINOPHEN 325 MG TABLET PO PRN (08:00)
[2020-09-05] MEDS ORDERED: PROMETHAZINE 25 MG/ML, 1ML IVPush PRN (08:00)
[2020-09-05] MEDS ORDERED: ONDANSETRON 2MG/ML, 2ML IVPush PRN (08:00)
[2020-09-05] MEDS ORDERED: FENTANYL PF 100 MCG/2ML IV PRN (08:00)
[2020-09-05] MEDS ORDERED: ACETAMINOPHEN 650 MG/20.3 ML UDC ONE (09:12)
== END 2020-09-05 10:50 | disposition home or self-care (01) ==
LOC: OUT 05:48
PROVIDERS: ATTEND Obstetrics & Gynecology
DX: N87.1 Moderate cervical dysplasia (principal); F32.9 Major depressive disorder, single episode, unspecified; F41.9 Anxiety disorder, unspecified; M32.8 Other forms of systemic lupus erythematosus; Z79.01 Long term (current) use of anticoagulants; Z79.82 Long term (current) use of aspirin; Z79.899 Other long term (current) drug therapy; Z86.711 Personal history of pulmonary embolism; Z86.718 Personal history of other venous thrombosis and embolism; Z88.0 Allergy status to penicillin; Z88.2 Allergy status to sulfonamides; Z83.3 Family history of diabetes mellitus; Z82.49 Family history of ischemic heart disease and other diseases of the circulatory system
CPT/HCPCS: 36415; 57520; 81025; 86850; 86900; 86923; 88305; 88307; J0171; J0690; J2250; J2405; J2704; J2765; J2800; J3010; J7120

== ENCOUNTER → 2020-12-24 | Outpatient (CLI) | payer BC, OTHER | END | disposition home or self-care (01) | LOC: CVU 11:59 | PROVIDERS: ATTEND Internal Medicine | DX: Z01.818 Encounter for other preprocedural examination (principal); R00.2 Palpitations | CPT/HCPCS: 93005 ==